=== PATIENT | male | born 1935 | race Caucasian/White ===

== ENCOUNTER 2019-02-21 13:13 | Outpatient (RCR) | payer MEDICARE, SELFPAY ==
[2019-02-21 13:44] LABS: INR 2.2; Prothrombin Time 22.9 Seconds (9.64-11.0)
== END 2019-05-22 23:59 | disposition home or self-care (01) ==
LOC: CHSLAB 13:13
PROVIDERS: Visit Provider Internal Medicine
DX: Z79.01 Long term (current) use of anticoagulants (principal)
CPT/HCPCS: 36415; 85610

== ENCOUNTER 2020-07-08 14:32 | Outpatient (CLI) | payer MEDICARE, SELFPAY ==
[2020-07-08 15:39] LABS: Influenza A QL RT-PCR Negative (Negative); Influenza B QL RT-PCR Negative (Negative); SARS-CoV-2 RNA PCR Negative (Negative)
== END 2020-07-08 14:33 | disposition home or self-care (01) ==
LOC: CHSLAB 14:35
PROVIDERS: PCP Internal Medicine; Visit Provider Internal Medicine
DX: R05 Cough (principal); J02.9 Acute pharyngitis, unspecified
CPT/HCPCS: 87081; 87502; 87880; C9803; U0003; U0005

== ENCOUNTER 2020-07-09 13:17 | Outpatient (CLI) | payer MEDICARE, SELFPAY ==
--- NOTE | ~2020-07-09 | XR_ITS ---
EXAMINATION: XR chest 2V DATE: 07/09/2020 13:57 INDICATION: Cough and wheezing. TECHNIQUE: Frontal and lateral views of the chest were obtained. COMPARISON: Chest single view 02/07/2017, chest CT 02/14/2017 FINDINGS: There is mild atelectasis versus scarring at the lung bases. No pleural effusion or pneumot horax. The heart size is normal. IMPRESSION: 1. Mild atelectasis versus scarring at the lung bases. Reviewed, dictated and finalized at location A.
[2020-07-09 13:35] LABS: Hematocrit 42.1 % (37.0-46.0); Mean Corpuscular HGB Conc 33.3 g/dL (32.0-36.0); Mean Corpuscular Hemoglobin 30.7 pg (27.0-31.0); Mean Corpuscular Volume 92.3 fL (78.0-102.0); Mean Platelet Volume 9.2 fl (8.7-11.0); Platelet Count Result 209 K/mm3 (150-420); Red Blood Count 4.56 M/mm3 (4.70-6.10); White Blood Count 8.1 K/mm3 (4.8-10.8)
[2020-07-09 13:48] LABS: INR 2.8; Prothrombin Time 28.6 Seconds (9.50-12.10)
[2020-07-09 13:50] LABS: Alanine Aminotransferase 18 U/L (16-63); Albumin Level 3.3 g/dL (3.4-5.0); Alkaline Phosphatase 100 U/L (46-116); Anion Gap 9 mmol/L (8-16); Aspartate Amino Transferase 14 U/L (15-37); Bilirubin,Total 0.8 mg/dL (0.00-1.00); Blood Urea Nitrogen 22 mg/dL (7-18); Calcium 8.6 mg/dL (8.5-10.1); Carbon Dioxide 29 mmol/L (21-32); Chloride 102 mmol/L (98-108); Estimated Glomerular Filt Rate 59; Glucose 86 mg/dL (70-99); Osmolality Calculated 292 mOsm/kg (285-295); Sodium 140 mmol/L (136-145); Total Protein 6.9 g/dL (6.4-8.2)
[2020-07-09 14:14] LABS: Band Neutrophils Percent 0 % (0-6); Neutrophils Absolute Manual 3.96 K/mm3 (1.3-6.7); Neutrophils Percent Manual 49 % (46-73); Total Cells Counted 100
[2020-07-09 14:15] LABS: Basophils Absolute Manual 0.16 K/mm3 (0-0.1); Basophils Percent Manual 2 % (0-1); Eosinophils Absolute Manual 0.48 K/mm3 (0.02-0.5); Eosinophils Percent Manual 6 % (1-6); Lymphocytes Absolute Manual 2.18 K/mm3 (1.1-4.5); Lymphocytes Percent Manual 27 % (18-44); Monocytes Absolute Manual 1.29 K/mm3 (0.1-0.90); Monocytes Percent Manual 16 % (3-9); Platelet Estimate Adequate (Adequate)
== END 2020-07-09 13:18 | disposition home or self-care (01) ==
LOC: CHSLAB 13:20
PROVIDERS: PCP Internal Medicine; Visit Provider Internal Medicine
DX: R05 Cough (principal); R06.2 Wheezing; Z79.01 Long term (current) use of anticoagulants
CPT/HCPCS: 36415; 71046; 80053; 85025; 85610

== ENCOUNTER 2021-03-12 11:39 | Outpatient (CLI) | payer MEDICARE, SELFPAY ==
--- NOTE | 2021-03-12 12:50 | ECG_ITS ---
Measurements Intervals [place] Rate: 75 P: 68 LA: 205 QRS: 25 QRSD: 102 T: 34 QT: 374 QTc: 418 Interpretive Statements SINUS RHYTHM BASELINE ARTIFACT- I, II, III, AVR, V1 NORMAL ECG Electronically Signed On 03-12-2021 15:52:57 STOCKROOM WORKER by Dony Junior D.O.
== END 2021-03-12 11:40 | disposition home or self-care (01) ==
LOC: CHSCARD 11:41
PROVIDERS: PCP Internal Medicine; Visit Provider Internal Medicine
DX: R06.00 Dyspnea, unspecified (principal); R06.2 Wheezing; R91.8 Other nonspecific abnormal finding of lung field; J84.10 Pulmonary fibrosis, unspecified
CPT/HCPCS: 93005; 94060; 94726; 94729

== ENCOUNTER 2021-03-16 12:18 | Outpatient (CLI) | payer MEDICARE, SELFPAY ==
--- NOTE | ~2021-03-16 | CT_ITS ---
EXAMINATION: CT diagnostic chest wo con DATE: 03/16/2021 12:56 INDICATION: Wheezing with exacerbation. Pulmonary fibrosis. TECHNIQUE: Computed tomography (CT) of the chest was performed without intravenous contrast. The dose -length product was 307.27 mGy-cm. Automated exposure control and iterative reconstruction technique were employed. COMPARISON: CT dated 07/25/2009 FINDINGS: There is mediastinal lymphadenopathy. For instance precarinal lymph node measures 12 mm maría elena rt axis. Heart size normal. No significant pleural or pericardial effusion. There is atherosclerosis of the aorta and coronary arteries. There are gallstones. Otherwise, the upper abdomen is unremarkabl e. There is interlobular septal thickening bilaterally with subpleural bands, mild right lower lobe t raction bronchiectasis and coarse peripheral interstitial changes in the lower lobes with a pattern c onsistent with usual interstitial pneumonitis. No endobronchial lesions. There is levoscoliosis. Ther e are a few scattered small pulmonary nodules measuring 4 mm or less. There is mild emphysema. IMPRESSION: 1. 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 2: Mediastinal lymphadenopathy likely reactive. 3: Small bilateral pulmonary nodules measuring 4 mm or less, likely benign. Follow-up low dose CT ch est in 12 months recommended. Reviewed, dictated and finalized at location A. N TECH IMPRESSION: 1. Chronic interstitial lung disease in a pattern consistent with usual interst itial pneumonitis. 2: Mediastinal lymphadenopathy likely reactive. 3: Small bilateral pulmonary nodules measuring 4 mm or less, likely benign. Fo llow-up low dose CT chest in 12 months recommended.
--- NOTE | 2021-03-16 13:10 | ECHO_ITS ---
Patient Info Name: Artur Guadalupe Age: 85 years : 1935 Gender: Male Ht: 71 in Wt: 185 lbs BSA: 2.06 m2 HR: 88 bpm BP: 130 / 79 mmHg Exam Date: 03/16/2021 1:59 PM Exam Location: [facility] Patient Status: Outpatient Admit Date: 03/16/2021 Staff Ordering Physician: Lizandro Christian MD Supervisor Bottle House Cleaners: Susan Chen Attending Provider: Lizandro Christian MD Referring Physician: Gino BARRAZA; Exam Type: CA echo doppler color flow Study Info Indications R06.00 - Dyspnea, unspecified Complete two-dimensional, color flow and Doppler transthoracic echocardiogram is performed. Summary 1. Complete two-dimensional, color flow and Doppler transthoracic echocardiogram is performed. 2. Left ventricular chamber dimension is normal. 3. Left ventricular systolic function is normal, estimated at 60-65%. 4. There is mildly increased left ventricular wall thickness. 5. The left ventricular diastolic function is grade I diastolic dysfunction. 6. E/e' 6 is not elevated. 7. There is mild aortic valve sclerosis. 8. There is mild aortic valve regurgitation. 9. Mild pulmonary hypertension, estimated pulmonary arterial systolic pressure is 42 mmHg. Left Ventricle E/e' 6 is not elevated. Left ventricular chamber dimension is normal. Left ventricular systolic function is normal, estimated at 60-65%. There is mildly increased left ventricular wall thickness. The left ventricular diastolic function is grade I diastolic dysfunction. Right Ventricle Right ventricular systolic function is normal and with normal TAPSE 2.2 cm. Right ventricular chamber dimension is normal. Left Atria Left atrial chamber dimension is normal. Right Atria Right atrial chamber dimension is normal. Aortic Valve The aortic valve is trileaflet. There is mild aortic valve sclerosis. There is no aortic valve stenosis. There is mild aortic valve regurgitation. Pulmonic Valve There is no pulmonic regurgitation. Mitral Valve There is no mitral valve stenosis. There is no mitral valve regurgitation. Tricuspid Valve There is no tricuspid valve regurgitation. Mild pulmonary hypertension, estimated pulmonary arterial systolic pressure is 42 mmHg. Pericardium/Pleural There is no pericardial effusion. Inferior Vena Cava Inferior vena cava is not well visualized. Aorta The aortic root size at the sinus of Valsalva is normal. Left Ventricular Outflow Tract Name Value Normal LVOT 2D LVOT Diameter 2.1 cm LVOT Doppler LVOT Peak Velocity 106 cm/s LVOT Peak Gradient 4 mmHg LVOT Mean Gradient 3 mmHg LVOT VTI 22 cm LVOT VTI/AV VTI Ratio 0.7 LVOT Stroke Volume 78 ml Mitral Valve Name Value Normal MV Doppler M
== END 2021-03-16 12:19 | disposition home or self-care (01) ==
LOC: CHSIMG 12:20
PROVIDERS: PCP Internal Medicine; Visit Provider Internal Medicine
DX: R06.00 Dyspnea, unspecified (principal); R06.2 Wheezing; R91.8 Other nonspecific abnormal finding of lung field; J84.10 Pulmonary fibrosis, unspecified
CPT/HCPCS: 71250; 93306

== ENCOUNTER 2021-08-03 14:59 | Outpatient (CLI) | payer MEDICARE, SELFPAY ==
--- NOTE | ~2021-08-03 | XR_ITS ---
EXAMINATION: XR chest 2V DATE: 08/03/2021 15:27 INDICATION: Shortness of breath, COVID 19 positive TECHNIQUE: Frontal and lateral views of the chest are obtained COMPARISON: 07/09/2020 FINDINGS: The lungs are free of acute opacities. There is no pleural effusion or pneumothorax. The ca rdiomediastinal silhouette is normal. There is severe thoracic spondylosis. IMPRESSION: 1. No acute cardiopulmonary abnormality. Reviewed, dictated and finalized at location A.
[2021-08-03 15:36] LABS: Hemoglobin 15.1 g/dL (12.4-15.3); Mean Corpuscular HGB Conc 32.8 g/dL (32.0-36.0); Mean Corpuscular Hemoglobin 30.8 pg (27.0-31.0); Mean Corpuscular Volume 93.7 fL (78.0-102.0); Mean Platelet Volume 9.4 fl (8.7-11.0); Platelet Count Result 178 K/mm3 (150-420); Red Blood Count 4.91 M/mm3 (4.70-6.10); Red Cell Distribution Width 13.7 % (11.6-14.4); White Blood Count 7.5 K/mm3 (4.8-10.8)
[2021-08-03 15:48] LABS: Anion Gap 11 mmol/L (8-16); Blood Urea Nitrogen 24 mg/dL (7-18); Calcium 8.6 mg/dL (8.5-10.1); Carbon Dioxide 25 mmol/L (21-32); Chloride 101 mmol/L (98-108); Estimated Glomerular Filt Rate 52; Glucose 97 mg/dL (70-99); Osmolality Calculated 288 mOsm/kg (285-295); Potassium 4.1 mmol/L (3.5-5.1); Sodium 137 mmol/L (136-145)
[2021-08-03 15:58] LABS: Band Neutrophils Percent 0 % (0-6); Lymphocytes Percent Manual 24 % (18-44); Monocytes Percent Manual 16 % (3-9); Neutrophils Percent Manual 60 % (46-73); Platelet Estimate Adequate (Adequate); Total Cells Counted 100
== END 2021-08-03 15:00 | disposition home or self-care (01) ==
LOC: CHSLAB 15:01
PROVIDERS: PCP Internal Medicine; Visit Provider Internal Medicine
DX: J06.9 Acute upper respiratory infection, unspecified (principal); U07.1 COVID-19
CPT/HCPCS: 36415; 71046; 80048; 85025

== ENCOUNTER 2022-08-17 15:22 | Outpatient (CLI) | payer MEDICARE, SELFPAY ==
--- NOTE | ~2022-08-17 | XR_ITS ---
XR chest 2V 08/17/2022 15:41 Indication: Chronic shortness of breath with cough Procedure: 2 view chest Comparison: Comparison to multiple prior studies sequentially, with oldest reviewed study dated 01/26. Findings: Heart size normal. No focal air space disease, pulmonary edema, pleural effusion or suspect ed pneumothorax. The lungs are hyperinflated which is consistent with, but not diagnostic of chronic obstructive pulmonary disease. Impression: 1: No acute cardiopulmonary disease. Reviewed, dictated and finalized at location L. Impression: 1: No acute cardiopulmonary disease.
== END 2022-08-17 15:23 | disposition home or self-care (01) ==
LOC: CHSIMG 15:27
PROVIDERS: PCP Internal Medicine; Visit Provider Internal Medicine
DX: J44.9 Chronic obstructive pulmonary disease, unspecified (principal); R10.11 Right upper quadrant pain
CPT/HCPCS: 71046

== ENCOUNTER 2022-08-20 07:59 | Outpatient (CLI) | payer MEDICARE, SELFPAY ==
--- NOTE | ~2022-08-20 | US_ITS ---
US right upper quadrant INDICATION: Right upper quadrant pain. History of gallstones. PROCEDURE: Realtime right upper abdominal ultrasound. COMPARISON: No prior studies for comparison. FINDINGS: The pancreas is normal without focal mass or pancreatic ductal dilation. Liver echotexture is normal without focal mass or intrahepatic biliary dilatation. There is normal directional flow i n the portal vein. There is gallbladder sludge. No definite gallstones are identified. Gallbladder is otherwise unremark able without significant wall thickening or pericholecystic fluid. Common bile duct measures 4 mm. No sonographic Millan's sign. IMPRESSION: 1: Gallbladder sludge. Reviewed, dictated and finalized at location B. IMPRESSION: 1: Gallbladder sludge.
== END 2022-08-20 08:00 | disposition home or self-care (01) ==
LOC: CHSIMG 08:00
PROVIDERS: PCP Internal Medicine; Visit Provider Internal Medicine
DX: J44.9 Chronic obstructive pulmonary disease, unspecified (principal); R10.11 Right upper quadrant pain; K83.9 Disease of biliary tract, unspecified
CPT/HCPCS: 76705

== ENCOUNTER 2022-08-30 07:38 | Outpatient (CLI) | payer MEDICARE, SELFPAY ==
--- NOTE | ~2022-08-30 | NM_ITS ---
EXAMINATION: NM hepatobiliary w pharm DATE: 08/30/2022 10:20 INDICATION: Right upper quadrant abdominal pain. COMPARISON: Ultrasound 08/20/2022 TECHNIQUE: 5.9 mCi Tc-99m mebrofenin (Choletec) was administered intravenously. Scintigraphic images of the abdomen were obtained for one hour. Then, 1.7 mcg sincalide (Kinevac) IV was administered, an d imaging was continued for 30 minutes. FINDINGS: There is normal clearance of radiotracer from the blood pool. There is homogeneous tracer u ptake by the liver. Activity progresses to the bowel and gallbladder. Gallbladder ejection fraction (GBEF) was 20%. Note that most patients with gallbladder dysfunction have GBEF < 35%, which overlaps with the broad normal range of 10-90%. IMPRESSION: 1. Gallbladder ejection fraction in the lower range of normal. Note that this value overlaps with th e range of values that may be seen with gallbladder dysfunction and/or chronic cholecystitis if there is appropriate clinical correlation. Reviewed, dictated and finalized at location A. IMPRESSION: 1. Gallbladder ejection fraction in the lower range of normal. Note that this value overlaps with the range of values that may be seen with gallbladder dysfu nction and/or chronic cholecystitis if there is appropriate clinical correlatio nBlair
== END 2022-08-30 07:39 | disposition home or self-care (01) ==
LOC: CHSIMG 07:39
PROVIDERS: PCP Internal Medicine; Visit Provider Internal Medicine
DX: R10.11 Right upper quadrant pain (principal)
CPT/HCPCS: 78227; A9537; J2805

== ENCOUNTER 2023-02-24 09:01 | Outpatient (CLI) | payer MEDICARE, SELFPAY ==
--- NOTE | ~2023-02-24 | CT_ITS ---
CT Scan of the Chest without Contrast: Clinical Indication: Pulmonary nodule Technique: Contiguous sections were acquired throughout the chest without intravenous contrast. Dose reduction technique was used on this scan by utilizing automated exposure control and iterative recon struction technique. The dose-length product (DLP) was 265.84 mGy-cm. COMPARISON: 03/16/2021 Findings: There is no evidence of any significant mediastinal, hilar or axillary lymphadenopathy. There are ath erosclerotic calcifications of the aorta and coronary arteries. There is no evidence of pleural or pericardial effusion. Diffuse subpleural reticulation and mild peripheral interstitial thickening, with basilar predominanc e, is similar to prior exam. No suspicious pulmonary nodule seen. Images through the upper abdomen reveal small gallstones. Impression: Mild chronic interstitial pulmonary disease, stable from prior exam. No suspicious pulmonary nodule. Reviewed, dictated and finalized at [facility]. WHAT INSPECTOR AND PACKER Impression: Mild chronic interstitial pulmonary disease, stable from prior exam. No suspicious pulmonary nodule.
== END 2023-02-24 09:02 | disposition home or self-care (01) ==
LOC: CHSIMG 09:04
PROVIDERS: PCP Internal Medicine; Visit Provider Internal Medicine
DX: R91.1 Solitary pulmonary nodule (principal); J84.9 Interstitial pulmonary disease, unspecified
CPT/HCPCS: 71250

== ENCOUNTER 2023-03-10 00:34 | Day surgery (SDC) | payer MEDICARE, SELFPAY ==
[2023-03-02 11:20] VITALS: BMI 24.4
--- NOTE | 2023-03-08 10:47 | SUR.PREOP ---
Patient called regarding upcoming procedure. Message left on patient's voicemail regarding appointment times..
[2023-03-10 08:14] VITALS: BP 155/71; PULSE 63; RESP 18; TEMP 35.8; O2SAT 95
[2023-03-10] MEDS: LACTATED RINGERS 1,000 ML 150 ML IV CONT ×2 (08:43→10:02)
[2023-03-10 09:03] LABS: INR 1.1; Prothrombin Time 14.8 Seconds (11.1-14.7)
[2023-03-10 09:05] LABS: Partial Thromboplastin Time 28.8 SECONDS (22.3-36.8)
--- NOTE | 2023-03-10 09:37 | WPDANESEPPF ---
Anes - Initial Pre Proc Eval Procedure: Operation Date: 03/10/23 09:30 Proposed Procedures p Esophagogastroduodenoscopy - Morgan Logan DO Date/Time: 03/10/23 09:37 Surgeon: Morgan Logan DO Pre Op Diagnosis: Hematemesis Patient Data Age: 87 Gender: M Height: 1.83 m Weight: 80 kg Last Vital Signs Temp 96.5 F L 03/10/23 08:14 Pulse 63 03/10/23 08:14 Resp 18 03/10/23 08:14 BP 155/71 H 03/10/23 08:14 Pulse Ox 95 03/10/23 08:14 O2 Del Method Room Air 03/10/23 08:14 Allergies Allergy/AdvReac Type Severity Reaction Status Date / Time No Known Allergies Allergy Verified 03/10/23 08:12 Home Medications Medication Instructions Recorded Confirmed Type albuterol sulfate 90 mcg/actuation 1 inh inhalation Q4-6H PRN 02/02/23 03/10/23 History breath activated powder inhaler Shortness Of Breath atenolol 25 mg tablet 25 mg PO DAILY 02/02/23 03/10/23 History atorvastatin 20 mg tablet 20 mg PO DAILY 02/02/23 03/10/23 History losartan 100 0.5 tablet PO DAILY 02/02/23 03/10/23 History mg-hydrochlorothiazide 12.5 mg tablet omeprazole 20 mg capsule,delayed 20 mg PO DAILY reflux 02/02/23 03/10/23 History release warfarin 1 mg tablet 0.5 mg PO DAILY 02/02/23 03/10/23 History ursodiol 300 mg capsule 300 mg PO BID #180 caps 02/03/23 03/10/23 Rx tiotropium bromide 18 mcg capsule 1 cap inhalation PRN PRN Shortness 03/02/23 03/10/23 History with inhalation device (Spiriva Of Breath with HandiHaler) warfarin 3 mg tablet 3 mg PO DAILY 03/02/23 03/10/23 History Laboratory Tests 03/10/23 08:39 PT 14.8 H Seconds (11.1-14.7) INR 1.1 APTT 28.8 SECONDS (22.3-36.8) Patient hx anesthesia problems: none Family hx anesthesia problems: none Results Review: All pre-operative results and documents have been reviewed as part of the pre-operative evaluation. [facility] Past Medical History Medical History (Updated 02/22/23 @ 10:03 by Pdero Wilkes MD) COPD (chronic obstructive pulmonary disease) GERD (gastroesophageal reflux disease) High cholesterol History of blood clots History of skin cancer Hypertension SATISH (obstructive sleep apnea) Surgical History Surgical History History of appendectomy History of bilateral knee replacement Family History Family History Other Diabetes mellitus Ovarian cancer Social History Social History Smoking status: Former smoker Tobacco type: cigarettes Alcohol intake: current Substance use: never Substance use type: does not use Living arrangements: with family Occupation/Education: retired Spiritual care concerns: No Anes - Eval Final PreProcedure Day of Procedure 03/10/23 09:37 Patient weight: normal Heart: regular rate and rhythm Lungs: clear to auscultation Airway: Mallampati scale Neurological: alert and oriented Last oral intake: >/= 8 hours ASA classification: III Emergent: no Anesthetic plan: proceed Anesthesia type and monitoring: general GIVS and standard monitoring Results Review: All pre-operative results and documents have been reviewed as part of the pre-operative evaluation. Informed Consent: The patient's anesthetic plan and its attendant risks and benefits were discussed with the patient/family/POA. Questions were solicited and answers provided to the satisfaction of the patient/family/POA.
--- NOTE | 2023-03-10 09:57 | PM.IMHP ---
H&P: HPI History of Present Illness Date/Time: 03/10/23 09:57 Chief Complaint: Hematemesis Narrative: This is an 87-year-old man who presents for EGD. He had an episode of hematemesis once. He has also been seen by his PCP for upper abdominal pain. He does get some frequent heartburn as well. He is on long-term anticoagulation for history of blood clots. He does take omeprazole 20 mg daily. Review of Systems Review of Systems: All systems reviewed & are unremarkable except as noted in HPI and below Constitutional: Constitutional: Denies chills, Denies fever(s), Denies headache(s) and Denies weight loss Eyes: Eyes: Denies change in vision ENT: Denies dizziness, Denies headache(s), Denies neck mass and Denies throat swelling Cardiovascular: Cardiovascular: Denies chest pain, Denies lightheadedness and Denies dyspnea Respiratory: Respiratory: Denies cough, Denies dyspnea and Denies wheezing Gastrointestinal: Gastrointestinal: Reports abdominal pain (Upper), Denies change in bowel habits, Denies nausea and Denies vomiting Genitourinary: Genitourinary: Denies hematuria and Denies dysuria Musculoskeletal: Musculoskeletal: Reports as per HPI Integumentary/Breasts: Skin/Breast: Reports as per HPI Neurologic: Denies dizziness and Denies headache(s) Allergic/Immunologic: Allergic/Immunologic: Denies throat swelling and Denies wheezing [facility] Past Medical History Medical History (Updated 03/10/23 @ 09:58 by Morgan Logan DO) COPD (chronic obstructive pulmonary disease) GERD (gastroesophageal reflux disease) High cholesterol History of blood clots History of skin cancer Hypertension SATISH (obstructive sleep apnea) Surgical History Surgical History History of appendectomy History of bilateral knee replacement Family History Family History Other Diabetes mellitus Ovarian cancer Social History Social History Smoking status: Former smoker Tobacco type: cigarettes Alcohol intake: current Substance use: never Substance use type: does not use Living arrangements: with family Occupation/Education: retired Spiritual care concerns: No Meds Home Medications and Allergies Home Medications Medication Instructions Recorded Confirmed Type albuterol sulfate 90 mcg/actuation 1 inh inhalation Q4-6H PRN 02/02/23 03/10/23 History breath activated powder inhaler Shortness Of Breath atenolol 25 mg tablet 25 mg PO DAILY 02/02/23 03/10/23 History atorvastatin 20 mg tablet 20 mg PO DAILY 02/02/23 03/10/23 History losartan 100 0.5 tablet PO DAILY 02/02/23 03/10/23 History mg-hydrochlorothiazide 12.5 mg tablet omeprazole 20 mg capsule,delayed 20 mg PO DAILY reflux 02/02/23 03/10/23 History release warfarin 1 mg tablet 0.5 mg PO DAILY 02/02/23 03/10/23 History ursodiol 300 mg capsule 300 mg PO BID #180 caps 02/03/23 03/10/23 Rx tiotropium bromide 18 mcg capsule 1 cap inhalation PRN PRN Shortness 03/02/23 03/10/23 History with inhalation device (Spiriva Of Breath with HandiHaler) warfarin 3 mg tablet 3 mg PO DAILY 03/02/23 03/10/23 History Allergies Allergy/AdvReac Type Severity Reaction Status Date / Time No Known Allergies Allergy Verified 03/10/23 08:12 Vital Signs Vital Signs - 24 hr 03/10/23 08:14 Temperature 35.8 C L Pulse Rate 63 Respiratory Rate 18 Blood Pressure 155/71 H Pulse Oximetry 95 Oxygen Delivery Room Air Exam Const: General: no acute distress and alert Orientation/consciousness: patient oriented x3 HENMT: Head: normocephalic and atraumatic Ears: hearing grossly normal bilaterally Face/Nose/Sinus: Normal nares present Mouth: Yes Normal oral and palatal mucosa present Eyes: Periorbital: periorbital findings normal Sclera: sclerae normal EOM: EOMs intact bilateral
[2023-03-10 10:22] VITALS: BP 107/45; PULSE 58; RESP 23; O2SAT 97
[2023-03-10 10:32] VITALS: BP 104/52; PULSE 63; RESP 25; O2SAT 97
[2023-03-10 10:42] VITALS: BP 126/62; PULSE 58; RESP 25; O2SAT 98
== END 2023-03-10 10:49 | disposition home or self-care (01) ==
PROVIDERS: PCP Internal Medicine; Visit Provider Surgery
PROC: 0DJ08ZZ Inspection of Upper Intestinal Tract, Via Natural or Artificial Opening Endoscopic (ICD-10-PCS; CPT 43235; principal; 2023-03-10 09:30)
DX: K44.9 Diaphragmatic hernia without obstruction or gangrene (principal); J44.9 Chronic obstructive pulmonary disease, unspecified; K21.9 Gastro-esophageal reflux disease without esophagitis; E78.00 Pure hypercholesterolemia, unspecified; I10 Essential (primary) hypertension; G47.33 Obstructive sleep apnea (adult) (pediatric); Z86.718 Personal history of other venous thrombosis and embolism; Z87.891 Personal history of nicotine dependence; F10.90 Alcohol use, unspecified, uncomplicated; Z79.51 Long term (current) use of inhaled steroids; Z79.01 Long term (current) use of anticoagulants; Z79.899 Other long term (current) drug therapy
CPT/HCPCS: 43235; 36415; 85610; 85730; J2704; J7120

== ENCOUNTER 2023-03-24 07:54 | Outpatient (CLI) | payer MEDICARE, SELFPAY ==
--- NOTE | ~2023-03-24 | US_ITS ---
EXAMINATION: US aorta DATE: 03/24/2023 08:17 INDICATION: Abdominal aortic aneurysm screening TECHNIQUE: Grayscale, color Doppler, and pulsed Doppler images of the aorta and common iliac arteries were obtained. COMPARISON: None. FINDINGS: The proximal aorta measures 2.4 cm. The mid aorta measures 3.3 cm. The distal aorta measures 3.1 cm. The right common iliac artery measures 2.0 cm. The left common iliac artery measures 2.0 cm. IMPRESSION: 1. 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 Reviewed, dictated and finalized at location A. RIOR DESIGN TEACHER IMPRESSION: 1. 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
== END 2023-03-24 07:55 | disposition home or self-care (01) ==
LOC: CHSIMG 07:55
PROVIDERS: PCP Internal Medicine; Visit Provider Internal Medicine
DX: I71.40 Abdominal aortic aneurysm, without rupture, unspecified (principal)
CPT/HCPCS: 76775

== ENCOUNTER 2023-07-22 07:59 | Outpatient (RCR) | payer MEDICARE, SELFPAY ==
--- NOTE | 2023-07-22 07:50 | OPREHPOC ---
Outpatient Therapy Plan of Care This is a Multidisciplinary Plan of Care that may contain components documented by all disciplines (PT, OT, and ST.) PT Problem 1 PT Problem #1 Knowledge Deficit PT Goal 1 Goal patient to demonstrate independence with HEP Target Visit 3 PT Problem 2 PT Problem #2 Impaired Strength PT Goal 1 Goal Patient to demonstrate 5/5 strength of B LE in order to return squatting for yard work Target Visit 6 PT Problem 3 PT Problem #3 Impaired Functional Mobil PT Goal 1 Goal 1. Patient to score 24 on Tinetti Balance scale to decrease fall risk to low 2. Patient to demonstrate 60 deg of B cervical rotation to improve ability to look over his shoulder when driving 3. Patient to ambulate 1200' on Tinetti balance scale with reported JACK dyspnea scale of 3/10 Target Visit 6
--- NOTE | 2023-07-22 07:53 | PTOPEVAL1 ---
Assessment and note entered by Yvonne Francis DPT Evaluation Information Assessment Status Evaluation Diagnosis unsteady gait, impaired balance, neck pain Onset 07/20/23 Subjective Information Patient reports he has noticed some impaired balance. he denies falls. he reports he does not use an AD. he reports neuropathy in both feet. he also reports neck pain at times but denies pain at IE. he reports he is still doing his own yard work and house work. he reports he still drives. he reports when he does have neck pain it is worse with turning to look over his shoulder and when sitting. he reports his pain is more on the left side. he reports he is not active enough at home. He reports he has COPD and gets short of breath Reported Pain Level Pain Score 0: Self Report Assessment PT Clinical Summary Mr. Guadalupe is a 88 year old male who presents to PT with impaired balance and neck pain. Patient denies neck pain at IE and will be address as needed. Patient demonstrates decreased LE strength , impaired Tinetti score indicating moderate fall risk and 5/10 dyspnea score on JACK during 6 min walk test limiting his ability to perform yard work and house hold tasks. He would benefit from skilled PT to address impairments and return to PLOF. Plan of Care Interventions Electrical Stimulation,Gait Training,Hot Pack/Cold Pack,Manual Therapy,Neuro Re-education,Patient/ Caregiver Educati,Therapeutic Activities, Therapeutic Exercise PT Services Indicated Yes Treatment Frequency and 2x weekly for 6 visits Duration These treatments will address the objective and functional deficits as defined above. The patient will be advanced safely and appropriately in order for the patient to progress towards his/her prior level of function. Additional exercises will be introduced and as well as a comprehensive home exercise program upon discharge, if needed, ?to ensure carryover of functional gains achieved in the clinic. This treatment plan has been reviewed and agreement upon by the patient.
--- NOTE | 2023-08-02 09:30 | OPREHPOC ---
Outpatient Therapy Plan of Care This is a Multidisciplinary Plan of Care that may contain components documented by all disciplines (PT, OT, and ST.) PT Problem 1 PT Problem #1 Knowledge Deficit PT Goal 1 Goal patient to demonstrate independence with HEP Target Visit 3 Progress Met PT Problem 2 PT Problem #2 Impaired Strength PT Goal 1 Goal Patient to demonstrate 5/5 strength of B LE in order to return squatting for yard work Target Visit 6 Progress Not Met PT Problem 3 PT Problem #3 Impaired Functional Mobil PT Goal 1 Goal 1. Patient to score 24 on Tinetti Balance scale to decrease fall risk to low, met 2. Patient to demonstrate 60 deg of B cervical rotation to improve ability to look over his shoulder when driving, met 3. Patient to ambulate 1200' on Tinetti balance scale with reported JACK dyspnea scale of 3/10, not met Target Visit 6 Progress Partially Met
--- NOTE | 2023-08-02 09:30 | PTOPDC ---
Assessment and note entered by Yvonne Francis DPT Evaluation Information Assessment Status Discharge - Pt Not Presen Diagnosis unsteady gait, impaired balance, neck pain Onset 07/20/23 Subjective Information patient reports he would like to make today his last day of PT. he reports he has been doing his HEP and will continue to do at home. he reports he has not had much neck pain. Reported Pain Level Pain Score 0: Self Report Pain Score 0: Self Report Assessment PT Clinical Summary Mr. Guadalupe attended 3 visits of skilled PT and has requested to be self discharged. He reports he will continue to perform his HEP independently. Patient demonstrates low fall risk indicated by Tinetti balance score and has decreased shortness of breath following 6 min walk test. Patient will be discharged at this time. Plan of Care PT Services Indicated No
== END 2023-08-02 20:00 | disposition home or self-care (01) ==
LOC: CHSPT 07:59
PROVIDERS: Visit Provider Internal Medicine
DX: M54.2 Cervicalgia (principal); R26.81 Unsteadiness on feet
CPT/HCPCS: 97110; 97112; 97161

== ENCOUNTER 2023-10-06 09:21 | Outpatient (CLI) | payer MEDICARE, SELFPAY ==
--- NOTE | ~2023-10-06 | XR_ITS ---
Clinical Indication: Cough, COPD PA and lateral views of the chest: Comparison: 08/17/2022 Findings: The lungs are clear, without evidence of focal consolidation or pleural effusion. Probable COPD. Cardiomediastinal silhouette is within normal limits. Bones and soft tissues are unremarkable. Impression: No acute abnormality evident. COPD. Reviewed, dictated and finalized at location . Impression: No acute abnormality evident. COPD.
[2023-10-06 09:48] LABS: Hemoglobin 14.7 g/dL (12.4-15.3); Mean Corpuscular HGB Conc 33.4 g/dL (32-36); Mean Corpuscular Hemoglobin 30.7 pg (27.0-31.0); Mean Corpuscular Volume 91.9 fL (78.0-102.0); Mean Platelet Volume 9.1 fl (8.7-11.0); Platelet Count Result 200 K/mm3 (150-420); Red Blood Count 4.79 M/mm3 (4.70-6.10); Red Cell Distribution Width 13.2 % (11.6-14.4); White Blood Count 9.4 K/mm3 (4.8-10.8)
[2023-10-06 10:30] LABS: Anion Gap 10 mmol/L (4-12); Blood Urea Nitrogen 18 mg/dL (7-18); Calcium 8.9 mg/dL (8.5-10.1); Carbon Dioxide 28 mmol/L (21-32); Chloride 100 mmol/L (98-108); Estimated Glomerular Filt Rate > 60; Glucose 110 mg/dL (70-99); Osmolality Calculated 288 mOsm/kg (285-295); Potassium 4.3 mmol/L (3.5-5.1); Sodium 138 mmol/L (136-145)
== END 2023-10-06 09:22 | disposition home or self-care (01) ==
LOC: CHSLAB 09:24
PROVIDERS: PCP Internal Medicine; Visit Provider Nurse Practitioner Family
DX: R05.1 Acute cough (principal); J44.1 Chronic obstructive pulmonary disease with (acute) exacerbation; J02.0 Streptococcal pharyngitis
CPT/HCPCS: 36415; 71046; 80048; 85027

== ENCOUNTER 2023-12-02 08:34 | Outpatient (CLI) | payer MEDICARE, SELFPAY | END 2023-12-02 08:35 | disposition home or self-care (01) | LOC: CHSCARD 08:36 | PROVIDERS: PCP Internal Medicine; Visit Provider Internal Medicine | DX: J44.9 Chronic obstructive pulmonary disease, unspecified (principal); R06.00 Dyspnea, unspecified | CPT/HCPCS: 94060; 94726; 94729; 95012 ==

== ENCOUNTER 2024-02-13 10:00 | Outpatient (CLI) | payer MEDICARE, SELFPAY ==
--- NOTE | ~2024-02-13 | CT_ITS ---
EXAMINATION: CT sinus wo con DATE: 02/13/2024 10:15 INDICATION: Chronic sinusitis. TECHNIQUE: Computed tomography (CT) of the paranasal sinuses was performed without intravenous contra st. Iterative reconstruction technique was employed. The dose-length product was 281.60 mGy-cm. COMPARISON: None FINDINGS: The frontal sinuses are clear. There is mild mucosal thickening in the bilateral ethmoid si nuses and maxillary sinuses. The right maxillary sinus is small. The sphenoid sinuses are clear. The nasal septum is at the midline. There is alissa bullosa involving the bilateral middle turbinates. Th e ostiomeatal units are patent. IMPRESSION: 1. Mild mucosal thickening in the paranasal sinuses. Reviewed, dictated and finalized at location A. REL EMBROIDERY DIGITIZER
== END 2024-02-13 10:01 | disposition home or self-care (01) ==
LOC: CHSIMG 10:02
PROVIDERS: PCP Internal Medicine; Visit Provider Internal Medicine
DX: J32.9 Chronic sinusitis, unspecified (principal)
CPT/HCPCS: 70486

== ENCOUNTER 2024-02-29 11:40 | Outpatient (CLI) | payer MEDICARE, SELFPAY ==
--- NOTE | ~2024-02-29 | XR_ITS ---
Clinical Indication: Chest pain, possible PA and lateral views of the chest: Comparison: 10/06/2023 Findings: Hazy medial biapical airspace opacities are present, unchanged. No acute pulmonary abnormal ity. Possible COPD.. Cardiomediastinal silhouette is within normal limits. Bones and soft tissues ar e unremarkable. Impression: Stable biapical opacities medially, possibly confluence of shadows. No acute abnormalities. COPD. Reviewed, dictated and finalized at location M. P SOCIAL WORKER Impression: Stable biapical opacities medially, possibly confluence of shadows. No acute abnormalities. COPD.
--- NOTE | ~2024-02-29 | XR_ITS ---
Right Shoulder Technique: AP and scapular Y views were obtained. Clinical History: Pain Findings: No fracture or dislocation is seen. Humeral head there is high riding. The glenohumeral mikie nt demonstrates moderate degenerative change. There is mild AC joint degenerative change. Soft tissue s are unremarkable. Impression: Degenerative changes, as above. High riding humeral head. Correlate for underlying rotator cuff tear. Reviewed, dictated and finalized at location M. DRIER Impression: Degenerative changes, as above. High riding humeral head. Correlate for underlying rotator cuff tear.
== END 2024-02-29 11:41 | disposition home or self-care (01) ==
LOC: CHSIMG 11:41
PROVIDERS: PCP Internal Medicine; Visit Provider Internal Medicine
DX: M25.511 Pain in right shoulder (principal); R07.81 Pleurodynia; R91.8 Other nonspecific abnormal finding of lung field; J44.9 Chronic obstructive pulmonary disease, unspecified
CPT/HCPCS: 71046; 73030

== ENCOUNTER 2024-03-14 09:34 | Outpatient (CLI) | payer MEDICARE, SELFPAY | END 2024-03-14 09:35 | disposition home or self-care (01) | LOC: ANHBWCAUD 09:34 | PROVIDERS: PCP Internal Medicine; Visit Provider Nurse Practitioner Family | DX: H90.3 Sensorineural hearing loss, bilateral (principal); H93.13 Tinnitus, bilateral; H69.93 Unspecified Eustachian tube disorder, bilateral | CPT/HCPCS: 92557; 92567 ==

== ENCOUNTER 2024-04-24 10:24 | Outpatient (CLI) | payer MEDICARE, SELFPAY ==
--- NOTE | ~2024-04-24 | XR_ITS ---
Clinical Indication: COPD PA and lateral views of the chest: Comparison: 02/29/2024 Findings: The lungs are clear, without evidence of focal consolidation or pleural effusion. Stable CO PD pattern with probable mild chronic interstitial disease at the lung bases. Cardiomediastinal silho uette is within normal limits. Bones and soft tissues are unremarkable. Impression: COPD pattern with probable mild chronic interstitial disease at the lung bases. Reviewed, dictated and finalized at location M. STANT ASSOCIATE FULL PROFESSOR Impression: COPD pattern with probable mild chronic interstitial disease at the lung bases.
[2024-04-24 10:54] LABS: Hematocrit 43.8 % (37.0-46.0); Hemoglobin 14.3 g/dL (12.4-15.3); Mean Corpuscular HGB Conc 32.6 g/dL (32-36); Mean Corpuscular Volume 91.8 fL (78.0-102.0); Mean Platelet Volume 9.5 fl (8.7-11.0); Platelet Count Result 160 K/mm3 (150-420); Red Blood Count 4.77 M/mm3 (4.70-6.10); Red Cell Distribution Width 13.7 % (11.6-14.4); White Blood Count 8.6 K/mm3 (4.8-10.8)
[2024-04-24 11:20] LABS: Alanine Aminotransferase 17 U/L (16-63); Albumin Level 3.3 g/dL (3.4-5.0); Alkaline Phosphatase 101 U/L (46-116); Anion Gap 12 mmol/L (4-12); Aspartate Amino Transferase 18 U/L (15-37); Bilirubin,Total 0.8 mg/dL (0.00-1.00); Blood Urea Nitrogen 15 mg/dL (7-18); Calcium 8.5 mg/dL (8.5-10.1); Carbon Dioxide 26 mmol/L (21-32); Chloride 99 mmol/L (98-108); Estimated Glomerular Filt Rate 60; Glucose 133 mg/dL (70-99); NT Pro B Type Natriuretic Pept 403 pg/mL (0-450); Osmolality Calculated 286 mOsm/kg (285-295); Potassium 4.3 mmol/L (3.5-5.1); Sodium 137 mmol/L (136-145); Total Protein 6.9 g/dL (6.4-8.2)
[2024-04-24 11:21] LABS: Strep Group A RT-PCR NOT DETECTED (Negative)
--- OUTSIDE RECORDS SUMMARY | 2024-04-24 11:28 | XMS_ITS | Clinical Summary ---
Author Organization [facility] Address [address] [place] [address]. [place], [place] [address] [place] [address] Care Team Providers Care Enterprise Services Manager Name Role Phone Lizandro Christian MD Primary Care Provider [phone] Medications montelukast (SINGULAIR) 10 MG tabletIndications :Moderate persistent asthma without complication ([facility]) TAKE 1 TABLET BY MOUTH NIGHTLY AT BEDTIME 30 tablet 2 Active Active Problems Problem Noted Date Diagnosed Date Bronchiectasis without complication ([facility]/HCC HHS /HCC) 08/26/2021 Chronic pulmonary aspiration 08/26/2021 Excessive daytime sleepiness 08/26/2021 Moderate persistent asthma without complication ([facility]) 08/25/2021 Social History Tobacco Use Types Packs/Day Years Used Date Smoking Tobacco: Never Assessed Sex and Gender Information Value Date Recorded Sex Assigned at Not on file Legal Sex Male 9:05 PM CDT Gender Identity Not on file Sexual Orientation Not on file Last Filed Vital Signs Vital Sign Reading Time Taken Comments Blood Pressure 137/84 08/20/2021 10:43 AM CDT Pulse 64 08/20/2021 10:43 AM CDT Temperature - - Respiratory Rate 20 08/20/2021 10:43 AM CDT Oxygen Saturation 97% 08/20/2021 10:43 AM CDT Inhaled Oxygen Concentration - - Weight 83.7 kg (184 lb 9.6 oz) 08/20/2021 10:43 AM CDT Height 182.9 cm (6') 08/20/2021 10:43 AM CDT Body Mass Index 25.04 08/20/2021 10:43 AM CDT Plan of Treatment Health Maintenance Due Date Last Done Comments Pneumococcal Vaccine: 65+ Ye ars (1 of 2 - PCV) 1941 DTaP, Tdap and Td Vaccines ( 1 - Tdap) 1954 Zoster Vaccines (1 of 2) 1985 Annual Medicare Wellness Visit 2000 RSV Immunization or 60+ Years (1 - 1-dose 75+ series) 2010 COVID-19 Vaccine (1 - 2023-2 5 season) 2023 Influenza Adult (#1) 2023 Meningococcal B Vaccine Aged Out No l onger eligible based on patient's age to complete this topic Meningococcal Vaccine Aged Out No dima cristian eligible based on patient's age to complete this topic RSV Immunizations Under 20 Months Aged Out No longer eligible based on patient's age to complete this topic Insurance MED [facility] MEDICARE Care Teams Enterprise Services Manager Relationship Specialty Start Date End Date Lizandro Christian MD [address] [place] [id number] PCP - General INTERNAL MEDICINE 04/01/21
[2024-04-24 11:30] LABS: SARS-CoV-2 RNA PCR Negative (Negative)
[2024-04-24 11:36] LABS: Influenza A QL RT-PCR Positive (Negative); Influenza B QL RT-PCR Negative (Negative); RSV RNA, RT-PCR Negative (Negative)
== END 2024-04-24 10:25 | disposition home or self-care (01) ==
PROVIDERS: PCP Internal Medicine; Visit Provider Internal Medicine
DX: J44.1 Chronic obstructive pulmonary disease with (acute) exacerbation (principal)
CPT/HCPCS: 36415; 71046; 80053; 83880; 85027; 87637; 87651

== ENCOUNTER 2024-05-07 07:09 | Emergency (ER) | payer MEDICARE, SELFPAY ==
--- NOTE | ~2024-05-07 | XR_ITS ---
Portable chest x-ray Comparison: 04/24/2024 Clinical History: Cough Findings: There is no acute pulmonary consolidation or pleural effusion. COPD pattern present. Card iomediastinal silhouette is stable. Bones and soft tissues are unremarkable. Impression: COPD. No definite acute abnormality seen. Reviewed, dictated and finalized at [facility]. ERVATION PLANNER Impression: COPD. No definite acute abnormality seen.
--- OUTSIDE RECORDS SUMMARY | 2024-05-07 07:11 | XMS_ITS | Clinical Summary ---
Author Organization [facility] Address [facility] [place] [address] Care Team Providers Care Physical Education Teacher Name Role Phone Lizandro Christian MD Primary Care Provider Medications montelukast (SINGULAIR) 10 MG tabletIndications :Moderate persistent asthma without complication (HHS/HCC) TAKE 1 TABLET BY MOUTH NIGHTLY AT BEDTIME 30 tablet 2 Active Active Problems Problem Noted Date Diagnosed Date Bronchiectasis without complication (CMS/HCC HHS /HCC) 08/26/2021 Chronic pulmonary aspiration 08/26/2021 Excessive daytime sleepiness 08/26/2021 Moderate persistent asthma without complication (HHS/HCC) 08/25/2021 Social History Tobacco Use Types Packs/Day [...] - 1-dose 75+ series) 2010 COVID-19 Vaccine ( - 2023-2 5 season) 2023 Influenza Adult (#1) 2023 Meningococcal B Vaccine Aged Out No l onger eligible based on patient's age to complete this topic Meningococcal Vaccine Aged Out No dima cristian eligible based on patient's age to complete this topic RSV Immunizations Under 20 Months Aged Out No longer eligible based on patient's age to complete this topic Insurance MED [facility] MEDICARE Care Teams Physical Education Teacher Relationship Specialty Start Date End Date Lizandro Christian MD [address] [place] [address] PCP - General INTERNAL MEDICINE 04/01/21
--- OUTSIDE RECORDS SUMMARY | 2024-05-07 07:11 | XMS_ITS | Data Portability ---
Author Organization [place] [facility] [employer], Main Office Address [address] [place] [address] Care Team Providers Care Die Designer Apprentice Name Role Phone LURDES ALDRICH Primary Care Provider Assessment No assessment recorded. Plan of Treatment Reminders Order Date Submit Date Provider Last Modified By Organization Details Last Modified Time Details Appointments Procedure 15 2024 09:45A Rubina Leon MD Not available Not available Not available Post-Op 15 2024 11:00A Rubina Leon MD Not available Not available Not available Lab None recorded. Referral None recorded. Procedures None recorded. Surgeries endoscopy , nasal/sin us, w/ maxillary antrostom y & tissue removal (SURG) 2024 025 Not available 05/04/2024 09:02:17 endoscopy , nasal/sin us, w/ total ethmoidec rosemarie (SURG) 2024 025 Not available 05/04/2024 09:02:17 Imaging None recorded. Medication Orders cefdinir 300 mg capsule [address] [facility] [place], [address], 05/03/2024 08:53:13 prednison e 20 mg tablet [address] [facility] [place], [address], 05/03/2024 08:53:[address] 10 mg tablet 2023 024 [facility] [place], [address], 02/15/2024 15:02:38 Medrol (Kaleb) 4 mg tablets in a dose pack [address]/[id number], [address] [place], [address], 05/03/2024 08:55:17 cefdinir 300 mg capsule [address]/[facility] #[id number], [address] [place], [address], 05/03/2024 08:53:13 Patient TargetsNo targets recorded. Patient Instructions Encounter Date Encounter Id Patient Instructions Last Modified By Organization Details Last Modified Time 02/15/2024 [id number] discussed recent sinus CT findings with patient. Also discussed middle ear fluid present bilaterally that is likely affecting his hearing and causing some mild dizziness. Prescribed cefdinir twice a day for 10 days for antimicrobial coverage. Take prednisone 20 mg daily for 5 days for inflammation. Discussed side effects of both medications. Also discussed montelukast and prescribed medication. Patient states he will follow-up with his PCP for continued prescription. He will have an audiogram and tympanogram completed. If symptoms continue to persist or worsen after completion of medication please notify the office to discuss further options with Dr. Leon. [email or web address] Not available 02/15/2024 15:04:16 Reason for Referral None Reported. Results Created Date Observation Date Name Description Value Unit Range Abnormal Flag Note LastModifiedBy Organization Detail LastModifiedTime 03/14/2003/14/2024 audio gram + tympa nogra m No observ ation record ed. [email or web address] [facility] (Audiology) [address], [address], 04/03/2024 11:15:35 03/19/20 24 03/14/2024 audio gram + tympa nogra m No observ ation record ed. [email or web address] (Audiology) 68[address] [facility] [address], [address], 03/30/2024 09:17:11 05/03/19 25 02/13/2024 CT, sinus es, w/o contr ast No observ ation record ed. [facility] [address] [place], [address], 05/04/2024 08:35:33 Result Notes None recorded. Problems Name Problem SNOMED Code Status Onset Date Resolution Date Notes Provider Name and Address Organization Details Recorded Time Dysfunction of bilateral eustachian tubes 7547755684289 100 Active 2023 Mónica Gonzales RN null, [employer] 4 14:52:44 Chronic maxillary sinusitis 12944064 Active 2023 SUSANNA Dave [address], [place], [address], [employer] 4 15:00:47 Chronic sinusitis 80759039 Active 2023 SUSANNA Dave [address], [place], [address], [employer] 4 15:00:56 Dysphonia 28946851 Active 2023 Mónica Gonzales RN null, [employer] 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 Procedures Surgical History None recorded. Imaging Results Imaging Date Name Status LastModified by Organiz ation Details LastModified Time 03/14/2024 audiogram + tympanogram completed [address] (Audiology) [address] [facility] [address] [place] [address], [address], 04/03/2024 11:15:35 03/14/2024 audiogram + tympanogram completed [address] (Audiology) 68[address] [facility] [address], [place], [address], 03/30/2024 09:17:11 02/13/2024 CT, sinuses, w/o contrast completed [address] [place], [address], 05/04/2024 08:35:33 Procedure Notes None recorded. Medical Equipment None Reported. Allergies Allergen ID Allergen Name Allergen Category Reaction Reaction Severity Criticality Documentation Date Start Date Code Code System Note Provider Name and Address Organization Details Recorded Time 12020 tiotropiu m Not available dry mouth Not available Not available 02/15/2024 91982 RxNorm Mónica Gonzales RN [facility], [facility] [employer] 08:32:32 Medications Name Sig Start Date Stop Date Status Note LastModified by Organization Details LastModified Time amoxicillin 500 mg capsule 03/19 completed Not Available Not Available Not Available prednisone 10 mg tablet PLEASE SEE ATTACHED FOR DETAILED DIRECTION S active Not Available Not Available No t Available atorvastati n 20 mg tablet Take 1 tablet every day by oral route. active Not Available Not Available No t Available ipratropium 0.5 mg-albutero l 3 mg (2.5 mg base)/3 mL nebulizatio n soln active Not Available Not Available Not Available azithromyci n 250 mg tablet TAKE 2 TABLETS BY MOUTH ON DAY 1, AND THEN TAKE 1 TABLET BY MOUTH ONCE A DAY ON DAY 2 THROUGH DAY 5 02/14 completed Not Available Not Available Not Available cetirizine 5 mg tablet TAKE 1 TABLET BY MOUTH EVERY DAY active Not Available Not Available No t Available Medrol (Kaleb) 4 mg tablets in a dose pack Take 1 dose pk by oral route. 05/03 completed Not Available Not Available Not Available prednisone 20 mg tablet Take 1 tablet every day by oral route for 5 days. 05/03 completed Not Available Not Available Not Available atenolol 25 mg tablet Take 1 tablet every day by oral route. active Not Available Not Available No t Available warfarin 4 mg tablet Take 1 tablet every day by oral route. active Not Available Not Available No t Available warfarin 3 mg tablet Take 1 tablet every day by oral route. active Not Available Not Available No t Available ketorolac 0.5 % eye drops INSTILL ONE DROP INTO SURGICAL EYE THREE TIMES PER DAY, STARTING AFTER SURGERY AND CONTINUE FOR 3 WEEKS 02/14 completed Not Available Not Available Not Available prednisolon e acetate 1 % eye drops,suspe nsion INSTILL ONE DROP THREE TIMES PER DAY INTO SURGICAL EYE, STARTING 4 HOURS AFTER SURGERY, CONTINUIN G FOR 3 WEEKS 02/14 completed Not Available Not Available Not Available meclizine 25 mg tablet Take 1 tablet 3 times a day by oral route. active Not Available Not Available No t Available oseltamivir 75 mg capsule TAKE 1 CAPSULE BY MOUTH TWICE A DAY active Not Available Not Available No t Available clotrimazol e-betametha sone 1 %-0.05 % topical cream APPLY TO THE AFFECTED AND SURROUNDI NG AREAS OF SKIN BY TOPICAL ROUTE 2 TIMES PER DAY IN THE MORNING AND EVENING FOR 2 WEEKS active Not Available Not Available No t Available montelukast 10 mg tablet Take 1 tablet every day by oral route for 90 days. active Not Available Not Available No t Available cyanocobala min (vit B-12) 1,[address] by sublingua l route. active Not Available Not Available No t Available loteprednol etabonate 0.5 % eye drops,suspe nsion INSTILL 1 DROP INTO BOTH EYES THREE TIMES DAILY FOR 14 DAYS. SHAKE WELL. 02/14 completed Not Available Not Available Not Available azelastine 137 mcg (0.1 %) nasal spray Dundas 2 sprays twice a day by intranasa l route. 05/03 completed Not Available Not Available Not Available warfarin 1 mg tablet Take 1 tablet every day by oral route. active Not Available Not Available No t Available albuterol sulfate HFA 90 mcg/actuati on aerosol inhaler INHALE 2 PUFFS (180 MCG) BY INHALATIO N ROUTE EVERY 4 TO 6 HOURS FOR SHORTNESS OF BREATH OR WHEEZING active Not Available Not Available No t Available cefdinir 300 mg capsule Take 1 capsule every 12 hours by oral route for 10 days. 05/03 completed Not Available Not Available Not Available fluticasone propionate 50 mcg/actuati on nasal spray,suspe nsion USE 1-2 SPRAYS IN EACH NOSTRIL ONCE DAILY NEEDED 05/03 completed Not Available Not Available Not Available amoxicillin 875 mg-potassiu m clavulanate 125 mg tablet TAKE 1 TABLET BY MOUTH EVERY 12 HOURS 02/14 completed Not Available Not Available Not Available moxifloxaci n 0.5 % eye drops INSTILL ONE DROP THREE TIMES PER DAY INTO SURGICAL EYE, STARTING ONE DAY PRIOR TO SURGERY, CONTINUE FOR 1 WEEK AFTER 02/14 completed Not Available Not Available Not Available tiotropium bromide 18 mcg capsule with inhalation device INHALE CONTENTS OF ONE CAPSULE USING 2 INHALATIO NS BY INHALATIO N ROUTE ONCE DAILY VIA HANDIHALE R active Not Available Not Available No t Available losartan 100 mg-hydrochl orothiazide 12.5 mg tablet Take 1 tablet every day by oral route. active Not Available Not Available No t Available docusate sodium active Not Available Not Available Not Available peg 3350-electr olytes 236 gram-22.74 gram-6.74 gram-5.86 gram solution DRINK 8OZ EVERY 15 MINUTES UNTIL CLEAR BOWEL MOVEMENT NOTED active Not Available Not Available No t Available levocetiriz ine 5 mg tablet Take 1 tablet every day by oral route. active Not Available Not Available No t Available omeprazole 20 mg tablet,mayra yed release Take by oral route. active Not Available Not Available No t Available Breo Ellipta 200 mcg-25 mcg/dose powder for inhalation INHALE 1 PUFF BY MOUTH ONCE DAILY AT THE SAME TIME EACH DAY active Not Available Not Available No t Available Vitals Date Recorded Body weight Body mass index (BMI) Body height Body temperature Provider Name and Address Organization Details Last Updated DateTime 02/15/2024 19554.76 g 23.4 kg/m2 182.88 cm 98 [degF] Mónica Gonzales RN [facility] 02/15/2024 14:45:06 Date Recorded Body height Body mass index (BMI) Body weight Body temperature Provider Name and Address Organization Details Last Updated DateTime 2024 182.88 cm 23.2 kg/m2 37100.01 g 97.9 [degF] Mónica Gonzales RN [facility] 2024 15:18:01 Date Recorded Body height Body mass index (BMI) Body weight Body temperature Provider Name and Address Organization Details Last Updated DateTime 05/03/2024 182.88 cm 23.2 kg/m2 96943.3 g 97.7 [degF] Mónica Gonzales RN [facility] 05/03/2024 11:08:54 Social History Question Answer Notes LastModified by Organizat ion Details LastModified Time Tobacco Smoking Status Former Smoker Mónica Gonzales RN [facility] 02/15/2024 14:40:50 What Is Your Level Of Alcohol Consumption? Occasional Information not available 02/15/2024 Sex: Unknown Functional Status None recorded. Mental Status None recorded. Family History Relationship Description Onset Age of this Age Resolved Age Notes LastModified by Organization Details LastModified Time Father No current problems or disability Not available 02/14 14:38:14 Mother No current problems or disability Not available 02/14 14:38:14 Notes:NO ENT Medical History Condition Response HEARTBURN / REFLUX Y COPD Y HIGH CHOLESTEROL / HYPERLIPIDEMIA Y EAR OR HEARING PROBLEMS Y SLEEP DISORDER Y HYPERTENSION Y Past Encounters Encounter ID Performer Location Encounter Start Date Encounter Closed Date Diagnosis/Indication Diagnosis SNOMED-CT Code Diagnosis ICD10 Code Diagnosis Note [id number] SUSANNA Dave [facility] [address] [place] [address] 02/15/2024 14:31:08 02/15/2024 15:04:52 Dysfunction of bilateral eustachian tubes 5288418909 747117 H69.93 Chronic sinusitis 321384 00 J32.9 [id number] [facility] [address] [place] [address] 2024 14:39:23 03/22/2024 10:54:37 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 2124390923 J39.2 Asymmetric al sensorineural hearing loss 657491614 H90.5 Chronic sinusitis 279987 00 J32.9 [id number] Fab Leon MD [facility] [address] [place] [address] 05/03/2024 10:58:58 05/03/2024 11:41:18 Chronic maxillary sinusitis 37449710 J32.0 Chronic et hmoidal sinusitis 68416032 J32.2 Health Concerns Section Related Observation LastModified by Organization Detai ls LastModified Time None Recorded Concern Status LastModified by Organization Details LastModified Time None Recorded Advance Directives Directive None Recorded Payers Encounter Date Sequence Insurance Name Policy Number Policy Michele Covered Member ID Michele Member ID Guarantor Name 02/15/2024 1 [employer] (MEDICARE REPLACEMENT PPO) [id number] 1 Artur Guadalupe [id number] [facility] 1 [employer] (MEDICARE REPLACEMENT PPO) [id number] 1 Artur Guadalupe [id number] Artur Giles [facility] 05/03/2024 1 [employer] (MEDICARE REPLACEMENT PPO) [id number] 1 [facility] [id number] Artur Guadalupe Notes Date Note Type Note Provider Name and Address Organization Details Recorded Time 02/15/2024 text/html This patient has a past medical history significant for COPD, sensorineural hearing loss s/p bilateral hearing aids, and hypertension who presents to the office with a complaint persistent nasal congestion, sinus headaches, and decreased hearing onset approximately 6 months ago. He has been taking levo cetirizine and azelastine as prescribed by his PCP with little to no relief. His PCP was considering prescribing montelukast but wanted to hold off until he was seen by ENT. He did recently have a sinus CT completed on 02/13/2024 revealing some mild mucosal thickening in the bilateral ethmoid and maxillary sinuses. The ostiomeatal units are patent. He states that he has not been on any recent antibiotics for this. His daughter does note that he has been having intermittent dizziness with this as well. SUSANNA Dave [address], [facility] [address], [place], [address], [facility] [employer] [address] [employer] [facility] [employer] [facility] 02/15/2024 15:04:19 2024 text/html this patient has chronic sinusitis as seen on CT affecting the ethmoid and maxillary sinuses. Did take antibiotics and prednisone with not much improvement. He also reports that food reflexes into his nasopharynx. Also complains of hearing loss. An audiogram was done demonstrating severe loss in the left and moderate to severe in the right. Wears a hearing aid in the right ear but is essentially unable on the left Fab Leon MD [address], [facility] [address], [place], [address], [employer] [facility] [employer] 2024 15:40:31 05/03/2024 text/html This patient returns with worsening symptoms of sinusitis. His CT scan revealed ethmoid and maxillary sinusitis and he was placed on antibiotics and steroids. His daughter reports the antibiotics only helped very transiently. And then he complains of facial pain eye pain and epistaxis. His daughter is not interested in any further antibiotics. Fab Leon MD [address], [facility] [address], [place], [address], [employer] [facility] [employer] [facility] 05/03/2024 11:41:16
[2024-05-07 07:17] VITALS: BP 173/108; PULSE 101; RESP 20; TEMP 37.1; O2SAT 99
--- NOTE | 2024-05-07 07:18 | ED.URI ---
HPI - URI/Sore Throat General Chief Complaint: Upper Respiratory Infection Stated Complaint: sob Time Seen by Provider: 05/07/24 07:17 Source: patient Mode of arrival: ambulatory Limitations: no limitations History of Present Illness HPI Narrative: 89 years old white male came to the ED by private car complaining of coughing, nasal and postnasal discharge, containing blood. Patient currently on Coumadin. Patient report the above symptom been going for a while got worse lately has seen his family physician 3-4 times in 1 week for the same problem. He denies any fever or chills or nausea or vomiting or chest pain or shortness of breath History of chronic sinusitis, scheduled for surgery. Related Data Home Medications ?Medication ?Instructions ?Recorded ?Confirmed ?Last Taken ?Type albuterol sulfate 90 mcg/actuation 1 inh inhalation Q4-6H PRN 02/02/23 03/10/23 03/09/23 History breath activated powder inhaler Shortness Of Breath atenolol 25 mg tablet 25 mg PO DAILY 02/02/23 03/10/23 03/10/23 06:00 History atorvastatin 20 mg tablet 20 mg PO DAILY 02/02/23 03/10/23 03/09/23 History losartan 100 0.5 tablet PO DAILY 02/02/23 03/10/23 03/09/23 History mg-hydrochlorothiazide 12.5 mg tablet omeprazole 20 mg capsule,delayed 20 mg PO DAILY reflux 02/02/23 03/10/23 03/09/23 History release warfarin 1 mg tablet 0.5 mg PO DAILY 02/02/23 03/10/23 03/09/23 History tiotropium bromide 18 mcg capsule 1 cap inhalation PRN PRN Shortness 03/02/23 03/10/23 03/09/23 History with inhalation device (Spiriva Of Breath with HandiHaler) warfarin 3 mg tablet 3 mg PO DAILY 03/02/23 03/10/23 03/06/23 History ipratropium 0.5 mg-albuterol 3 mg ml inhalation 05/07/24 Unknown History (2.5 mg base)/3 mL nebulization soln montelukast 10 mg tablet mg 05/07/24 Unknown History Allergies Allergy/AdvReac Type Severity Reaction Status Date / Time No Known Allergies Allergy Verified 05/07/24 08:11 Review of Systems Review of Systems: All systems reviewed & are unremarkable except as noted in HPI and below PMFSH Past Medical History Medical History COPD (chronic obstructive pulmonary disease) SATISH (obstructive sleep apnea) GERD (gastroesophageal reflux disease) History of blood clots High cholesterol History of skin cancer Hypertension Surgical History Surgical History History of bilateral knee replacement History of appendectomy Family History Family History Other Diabetes mellitus Ovarian cancer Social History Social History Smoking status: Former smoker Tobacco type: cigarettes Alcohol intake: current Substance use: never Substance use type: does not use Living arrangements: with family Occupation/Education: retired Spiritual care concerns: No Exam Narrative: General appearance: Well-developed, well-nourished Skin: Normal color Head: Normocephalic, nontraumatic Eyes: Clear conjunctiva ENT: Oropharynx normal, ears normal, nose normal Neck: Supple, nontender Chest and respiratory: Airway patent, no respiratory distress, no accessory muscle use Heart: Regular rate/rhythm Abdomen: Soft, nontender, no organomegaly, quiet bowel sounds Vascular: Normal peripheral pulses, normal capillary refill. Musculoskeletal: Normal range of motion, nontender back Neurologic: Alert and oriented ?3, GAS FITTER is normal as tested, no gross motor deficit Course Consultations Consultation #1: dr crockett Agreed with the plan of Tamiflu and Augmentin for chronic sinusitis and influenza a Date: 05/07/24 Time: 09:21 Vital Signs Vital signs: Vital Signs Temperature 37.1 C 05/07/24 07:17 Pulse Rate 101 H 05/07/24 07:17 Respiratory Rate 20 05/07/24 07:17 Blood Pressure 173/108 H 05/07/24 07:17 Pulse Oximetry 99 05/07/24 07:17 Oxygen Delivery Room Air 05/07/24 07:17 Temperature 37.1 C 05/07/24 07:17 Pulse Rate 101 H 05/07/24 07:17 Respiratory Rate 20 05/07/24 07:17 Blood Pressure 173/108 H 05/07/24 07:17 Pulse Oximetry 99 05/07/24 07:35 Oxygen Delivery Room Air 05/07/24 07:35 MDM - URI/Sore Throat MDM Narrative Medical decision making narrative: Patient presents with coughing, nasal and postnasal discharge mixed with blood when he is in AF hard or blow his nose hard. Currently no active bleeding Vital signs showing blood pressure 173/108, heart rate 101 otherwise within normal limit Differential diagnosis include acute on top of chronic sinusitis, Coumadin coagulopathy, upper respiratory viral infection, electrolyte imbalance, dehydration Blood workup today includes CBC, CMP, PT PTT showed WBC of 14.0 INR 3.0 otherwise insignificant abnormality Viral panel came back positive for influenza A, chest x-rayShowed no acute abnormalities. Discharged on Augmentin, Tamiflu, follow up with family physician in the morning, discussed with Dr. Gino Luna the pt was discharged to home.the pt,s condition upon discharge was fair,education was provided to the pt in reference to the final impression,discharge study results,treatment,prognosis and need for follow up . Medical Records Attestation: I reviewed the patient's medical records. Lab Data Attestation: I reviewed the patient's lab results. 05/07/24 07:22 05/07/24 07:23 Labs: Lab Results 05/07/24 05/07/24 Range/Units 07:22 07:23 WBC 14.0 H (4.8-10.8) K/mm3 RBC 4.63 L (4.70-6.10) M/mm3 Hgb 14.0 (12.4-15.3) g/dL Hct 42.3 (37.0-46.0) % MCV 91.4 (78.0-102.0) fL MCH 30.2 (27.0-31.0) pg MCHC 33.1 (32-36) g/dL RDW 13.9 (11.6-14.4) % Plt Count 273 (150-420) K/mm3 MPV 8.9 (8.7-11.0) fl Immature Gran % (Auto) 1.3 H (0.0-0.0) % Neut % (Auto) 71.4 H (50.0-70.0) % Lymph % (Auto) 15.9 L (18.0-42.0) % [place] % (Auto) 8.7 (2.0-11.0) % Eos % (Auto) 2.1 (1.0-6.0) % Baso % (Auto) 0.6 (0.0-1.0) % Lymph # (Auto) 2.23 (1.10-4.50) K/mm3 [place] # (Auto) 1.22 H (0.10-0.90) K/mm3 Eos # (Auto) 0.29 (0.02-0.50) K/mm3 Baso # (Auto) 0.08 (0.00-0.10) K/mm3 Abs Immat Gran (auto) 0.18 H (0.00-0.00) K/mm3 Absolute Neuts (auto) 10.02 H (1.70-7.20) K/mm3 Absolute Nucleated RBC 0.00 (0.00-0.00) K/mm3 Nucleated RBC % 0.0 (0-0.0) % PT 30.1 H (9.50-12.1) Seconds INR 3.0 APTT 37.1 H (23.9-30.70) Sec Sodium 138 (136-145) mmol/L Potassium 3.8 (3.5-5.1) mmol/L Chloride 103 (98-108) mmol/L Carbon Dioxide 24 (21-32) mmol/L Anion Gap 11 (4-12) mmol/L BUN 20 H (7-18) mg/dL Creatinine 0.89 (0.70-1.30) mg/dL Estim Creat Clear Calc 54 ml/min Estimated GFR > 60 (59 - ) Glucose 110 H (70-99) mg/dL Calculated Osmolality 289 (285-295) mOsm/kg Calcium 8.3 L (8.5-10.1) mg/dL Total Bilirubin 0.1 (0.00-1.00) mg/dL AST 12 L (15-37) U/L ALT 20 (16-63) U/L Alkaline Phosphatase 98 (46-116) U/L Total Protein 6.9 (6.4-8.2) g/dL Albumin 3.1 L (3.4-5.0) g/dL Influenza A (RT-PCR) Positive A (Negative) Influenza B (RT-PCR) Negative (Negative) RSV (RT-PCR) Negative (Negative) SARS-CoV-2 RNA (RT-PCR) Negative (Negative) Imaging Data Radiologist's impression: Impressions Chest X-Ray 05/07/24 07:50 Impression: COPD. No definite acute abnormality seen. ECG Data EKG #1: Attestation: I personally reviewed and interpreted this ECG as follows: ECG completion date: 05/07/24 Interpretation: normal sinus rhythm at 95 beats per minute, left ventricular hypertrophy, otherwise normal EKG Critical Care Time Critical Care Time Critical Care Time: No Discharge Plan Discharge Clinical Impression: Warfarin-induced coagulopathy, Influenza A, Chronic sinusitis Condition: Stable Instructions: Sinusitis (ED), Influenza (ED), Bleeding Disorders (ED) Additional Instructions: the pt was discharged to home.the pt,s condition upon discharge was fair,education was provided to the pt in reference to the final impression,discharge study results,treatment,prognosis and need for follow up . Hold Coumadin for 2 days Take Tylenol as needed See your family physician tomorrow Patient Language: Italian Prescriptions: New amoxicillin-pot clavulanate [Augmentin] 500-125 mg tablet 1 tablet PO Q8H Qty: 30 0RF oseltamivir [Tamiflu] 75 mg capsule 75 mg PO BID Qty: 10 0RF No Action ipratropium-albuterol 0.5 mg-3 mg(2.5 mg base)/3 mL solution for nebulization INHALATION montelukast 10 mg tablet atenolol 25 mg tablet 25 mg PO DAILY omeprazole 20 mg capsule,delayed release(DR/EC) 20 mg PO DAILY atorvastatin 20 mg tablet 20 mg PO DAILY albuterol sulfate 90 mcg/actuation aerosol powdr breath activated 1 inh inhalation Q4-6H PRN (Reason: Shortness Of Breath) losartan-hydrochlorothiazide 100-12.5 mg tablet 0.5 tablet PO DAILY warfarin 1 mg tablet 0.5 mg PO DAILY Patient Comments: total of 3.5mg daily ursodiol 300 mg capsule 300 mg PO BID Qty: 180 1RF warfarin 3 mg tablet 3 mg PO DAILY tiotropium bromide [Spiriva with HandiHaler] 18 mcg capsule, w/inhalation device 1 cap INHALATION PRN PRN (Reason: Shortness Of Breath) Follow-up/Referrals: Lizandro Crockett MD [Primary Care Provider] -
--- NOTE | 2024-05-07 07:22 | ECG_ITS ---
Test Date: 2024-05-07 07:39:48 Measurements Intervals [place] Rate: 95 P: 64 [place]: 184 QRS: 73 QRSD: 103 T: 17 QT: 356 QTc: 449 Interpretive Statements SINUS RHYTHM CONSIDER INFERIOR INFARCT, AGE INDETERMINATE CONSIDER ANTEROLATERAL INFARCT, AGE INDETERMINATE BASELINE ARTIFACT- I, II, III, AVR, AVL, AVF, V1 ABNORMAL ECG No previous ECG available for comparison Electronically Signed On 05-07-2024 08:00:55 INSURANCE APPLICATION INVESTIGATOR by Dony Junior D.O.
[2024-05-07 07:32] LABS: Basophils Absolute Auto 0.08 K/mm3 (0.00-0.10); Basophils Percent Auto 0.6 % (0.0-1.0); Eosinophils Absolute Auto 0.29 K/mm3 (0.02-0.50); Eosinophils Percent Auto 2.1 % (1.0-6.0); Hematocrit 42.3 % (37.0-46.0); Immature Granulocyte Absolute 0.18 K/mm3 (0.00-0.00); Immature Granulocyte Percent A 1.3 % (0.0-0.0); Lymphocytes Absolute Auto 2.23 K/mm3 (1.10-4.50); Lymphocytes Percent Auto 15.9 % (18.0-42.0); Mean Corpuscular HGB Conc 33.1 g/dL (32-36); Mean Corpuscular Hemoglobin 30.2 pg (27.0-31.0); Mean Corpuscular Volume 91.4 fL (78.0-102.0); Mean Platelet Volume 8.9 fl (8.7-11.0); Monocytes Absolute Auto 1.22 K/mm3 (0.10-0.90); Monocytes Percent Auto 8.7 % (2.0-11.0); Neutrophils Absolute Auto 10.02 K/mm3 (1.70-7.20); Neutrophils Percent Auto 71.4 % (50.0-70.0); Platelet Count Result 273 K/mm3 (150-420); Red Blood Count 4.63 M/mm3 (4.70-6.10); Red Cell Distribution Width 13.9 % (11.6-14.4)
[2024-05-07 07:35] VITALS: O2SAT 99
--- OUTSIDE RECORDS SUMMARY | 2024-05-07 07:59 | XMS_ITS | Clinical Summary ---
Author Organization [facility] Address [facility] [place] [address] Care Team Providers Care Hammerer Helper Name Role Phone Lizandro Christian MD Primary [...] age to complete this topic Insurance MED [facility] MEDICARE Care Teams Hammerer Helper Relationship Specialty Start Date End Date Lizandro Christian MD [address] [place] [address] PCP - General INTERNAL MEDICINE 04/01/21
[2024-05-07 08:01] LABS: Alkaline Phosphatase 98 U/L (46-116); Anion Gap 11 mmol/L (4-12); Aspartate Amino Transferase 12 U/L (15-37); Bilirubin,Total 0.1 mg/dL (0.00-1.00); Carbon Dioxide 24 mmol/L (21-32); Chloride 103 mmol/L (98-108); Potassium 3.8 mmol/L (3.5-5.1); Sodium 138 mmol/L (136-145); Total Protein 6.9 g/dL (6.4-8.2)
[2024-05-07 08:04] LABS: SARS-CoV-2 RNA PCR Negative (Negative)
[2024-05-07 08:07] LABS: Influenza A QL RT-PCR Positive (Negative); Influenza B QL RT-PCR Negative (Negative); RSV RNA, RT-PCR Negative (Negative)
[2024-05-07 08:09] LABS: Partial Thromboplastin Time 37.1 Sec (23.9-30.70); Prothrombin Time 30.1 Seconds (9.50-12.1)
[2024-05-07 08:11] LABS: Alanine Aminotransferase 20 U/L (16-63); Albumin Level 3.1 g/dL (3.4-5.0); Blood Urea Nitrogen 20 mg/dL (7-18); Estimated CRCL calculation 54 ml/min; Estimated Glomerular Filt Rate > 60
[2024-05-07 08:17] LABS: Calcium 8.3 mg/dL (8.5-10.1); Glucose 110 mg/dL (70-99); Osmolality Calculated 289 mOsm/kg (285-295)
[2024-05-07] MEDS: OSELTAMIVIR PHOSPHATE 75 MG CAPSULE PO (09:05)
[2024-05-07 09:28] VITALS: BP 117/81; PULSE 93; RESP 20; TEMP 36.6; O2SAT 97
--- NOTE | 2024-05-07 09:53 | PC.NURSE ---
40[address] DR NOBLE SPOKE WITH DR ALDRICH FOR FOLLOW UP CARE
== END 2024-05-07 09:32 | disposition home or self-care (01) ==
PROVIDERS: Emergency Provider Emergency Medicine; PCP Internal Medicine
DX: J10.1 Influenza due to other identified influenza virus with other respiratory manifestations (principal); J32.9 Chronic sinusitis, unspecified; R79.1 Abnormal coagulation profile; Z79.01 Long term (current) use of anticoagulants; Z20.822 Contact with and (suspected) exposure to COVID-19
CPT/HCPCS: 36415; 71045; 80053; 85025; 85610; 85730; 87637; 93005; 99284; A9270

== ENCOUNTER 2024-07-05 16:26 | Outpatient (CLI) | payer MEDICARE, SELFPAY ==
--- NOTE | ~2024-07-05 | XR_ITS ---
XR chest 2V Ordering provider: Lizandro Christian MD History: 89 years Male with . COUGH . Comparison: May 07, 2024 FINDINGS: MEDIASTINUM: The cardiac silhouette is not enlarged. LUNGS: No infiltrates, effusions or pneumothorax. Underlying emphysematous changes. OTHER: No free air under the diaphragm. Levoscoliosis with degenerative spine. IMPRESSION: No acute cardiopulmonary pathology. Reviewed, dictated and finalized at location A.
--- OUTSIDE RECORDS SUMMARY | 2024-07-05 16:28 | XMS_ITS | Data Portability ---
Author Organization [place] [facility], Main Office Address [address] [place] [address] Care Team Providers Care Service Delivery Supervisor Name Role Phone LURDES ALDIRCH Primary Care Provider [phone] Assessment No assessment recorded. Plan of Treatment Reminders Order Date Submit Date Provider Last Modified By Organization Details Last Modified Time Details Appointments None recorded. Lab None recorded. Referral None recorded. Procedures None recorded. Surgeries endoscopy, nasal/sinus , w/ maxillary antrostomy & tissue removal (SURG) 2024 025 Not available 5 09:53:54 endoscopy, nasal/sinus , w/ total ethmoidecto my (SURG) 2024 025 Not available 5 09:53:54 Imaging None recorded. Medication Orders Medrol (Kaleb) 4 mg tablets in a dose pack 2023 024 [facility]acy #[id number], [address] [place], [address], 5 08:55:17 cefdinir 300 mg capsule 2023 024 [facility]/Pharmacy #[id number], [address] [place], [address], 5 08:53:13 cefdinir 300 mg capsule 2023 024 [facility] [address] [place], [address], 5 08:53:13 prednisone 20 mg tablet [address] [facility] [place], [address], 08:53:32 montelukast 10 mg tablet 2023 [facility] [address] [place], [address], 15:02:38 Patient TargetsNo targets recorded. Patient Instructions Encounter Date Encounter Id Patient Instructions Last Modified By Organization Details Last Modified Time 02/15/2024 [id number] discussed recent sinus CT findings with patient. [...] to discuss further options with Dr. Leon. [email or web address] Not available 02/15/2024 15:04:16 Reason for Referral None Reported. Results Created Date Observation Date Name Description Value Unit Range Abnormal Flag Note LastModifiedBy Organization Detail LastModifiedTime 03/14/20 24 03/14/2024 audio gram + tympa nogra m No observ ation record ed. [address] (Audiology) [address] [place] [address], [address], 04/03/2024 11:15:35 03/19/20 24 03/14/2024 audio gram + tympa nogra m No observ ation record ed. [address] (Audiology) [address] [facility] [address], [address], 03/30/2024 09:17:11 05/03/19 25 02/13/2024 CT, sinus es, w/o contr ast No observ ation record ed. [address] [place], [address], 05/04/2024 08:35:33 Result Notes None recorded. Problems Name Problem SNOMED Code Status Onset Date Resolution Date Notes Provider Name and Address Organization Details Recorded Time Dysfunction of bilateral eustachian tubes 4433577352158 100 Active 2023 Mónica Gonzales RN null, [facility] [employer] [facility] 4 14:52:44 Chronic maxillary sinusitis 45654479 Active 2023 SUSANNA Dave [address], [place], [address], [facility] [employer] [facility] 4 15:00:47 Chronic sinusitis 53249764 Active 2023 SUSANNA Dave [address], [place], [address], [facility] [employer] [facility] 4 15:00:56 Dysphonia 09334813 Active 2023 Mónica Gonzales RN null, [facility] [employer] [facility] 4 15:36:20 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 Procedures Surgical History None recorded. Imaging Results Imaging Date Name Status LastModified by [facility] Details LastModified Time 03/14/2024 audiogram + tympanogram completed [address] (Audiology) [address] [facility] [address], [place], [address], 04/03/2024 11:15:35 03/14/2024 audiogram + tympanogram completed [address] (Audiology) [address] [facility] [address], [place], [address], 03/30/2024 09:17:11 02/13/2024 CT, sinuses, w/o contrast completed [address] [place], [address], 05/04/2024 08:35:33 Procedure Notes None recorded. Medical Equipment None Reported. Allergies Allergen ID Allergen Name Allergen Category Reaction Reaction Severity Criticality Documentation Date Start Date Code Code System Note Provider Name and Address Organization Details Recorded Time 38328 tiotropiu m Not available dry mouth Not available Not available 02/15/2024 42934 RxNorm Mónica Gonzales RN null, [facility] 08:32:32 Medications Name Sig Start Date Stop [...] azelastine 137 mcg (0.1 %) nasal spray [place] 2 sprays twice a day by intranasa [...] Address Organization Details Last Updated DateTime 02/15/2024 31773.76 g 23.4 kg/m2 182.88 cm 98 [degF] Mónica Gonzales RN [facility] 02/15/2024 14:45:06 Date Recorded Body height Body mass index (BMI) Body weight Body temperature Provider Name and Address Organization Details Last Updated DateTime 2024 182.88 cm 23.2 kg/m2 68661.01 g 97.9 [degF] Mónica Gonzales RN [facility] [employer] [facility] 2024 15:18:01 Date Recorded Body height Body mass index (BMI) Body weight Body temperature Provider Name and Address Organization Details Last Updated DateTime 05/03/2024 182.88 cm 23.2 kg/m2 77265.3 g 97.7 [degF] Mónica Gonzales RN [facility] [employer] [facility] 05/03/2024 11:08:54 Social History Question Answer Notes LastModified by [employer] ion Details LastModified Time Tobacco Smoking Status Former Smoker Mónica Gonzales RN [facility], [facility] [employer] [facility] 02/15/2024 14:40:50 What Is Your Level Of [...] 14:38:14 Notes:NO ENT Medical History Condition Response SLEEP DISORDER Y HEARTBURN / REFLUX Y HYPERTENSION Y EAR OR HEARING PROBLEMS Y COPD Y HIGH CHOLESTEROL / HYPERLIPIDEMIA Y Past Encounters Encounter ID Performer Location Encounter Start Date Encounter Closed Date Diagnosis/Indication Diagnosis SNOMED-CT Code Diagnosis ICD10 Code Diagnosis Note [id number] SUSANNA Dave [facility] [place] [address] [place] [address] 02/15/2024 14:31:08 02/15/2024 15:04:52 Dysfunction of bilateral eustachian tubes 5005516509 001036 H69.93 Chronic sinusitis 287427 00 J32.9 [id number] Fab Leon MD [facility] [place] [address] [place] [address] 2024 14:39:23 03/22/2024 10:54:37 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 6409065221 J39.2 Asymmetric al sensorineural hearing loss 972823268 H90.5 Chronic sinusitis 059374 00 J32.9 [id number] Fab Leon MD [facility] [place] [address] [place] [address] 05/03/2024 10:58:58 05/08/2024 11:50:06 Chronic maxillary sinusitis 64490158 J32.0 Chronic et hmoidal sinusitis 67581228 J32.2 Health Concerns Section Related Observation LastModified by Organization Detai ls LastModified Time None Recorded Concern Status LastModified by Organization Details LastModified Time None Recorded Advance Directives Directive None Recorded Payers Encounter Date Sequence Insurance Name Policy Number Policy Michele Covered Member ID Michele Member ID Guarantor Name 02/15/2024 1 [employer] (MEDICARE REPLACEMENT PPO) [id number] 1 Artur Guadalupe [id number] Artur Guadalupe 2024 1 [employer] (MEDICARE REPLACEMENT PPO) [id number] Artur Guadalupe [id number] Artur Guadalupe 05/03/2024 1 [employer] (MEDICARE REPLACEMENT PPO) [id number] Artur Guadalupe [id number] Artur Guadalupe Notes Date Note Type Note [...] having intermittent dizziness with this as well. Mónica Miller, [facility] [address] [facility] [facility] [address], [place], [address], [facility] [employer] [facility] 02/15/2024 15:04:19 2024 text/html this patient [...] but is essentially unable on the left MD [address], [place], [address], [facility] [employer] [facility] 2024 15:40:31 05/03/2024 text/html This patient returns with worsening symptoms of sinusitis. His CT scan revealed ethmoid and maxillary sinusitis and he was placed on antibiotics and steroids. His daughter reports the antibiotics only helped very transiently. And then he complains of facial pain eye pain and epistaxis. His daughter is not interested in any further antibiotics. Fab Leon MD [address], [place], [address], [facility] [employer] [facility] 05/03/2024 11:41:16
--- OUTSIDE RECORDS SUMMARY | 2024-07-05 16:28 | XMS_ITS | Clinical Summary ---
Author Organization [facility] Address [facility] [place] [address] Care Team Providers Care Shop Tailor Apprentice Name Role Phone Lizandro Christian MD Primary Care Provider [phone] Medications montelukast (SINGULAIR) 10 MG tabletIndications :Moderate [...] Vaccine (1 - 2023-2 5 season) 2023 Meningococcal B Vaccine Aged Out No l onger eligible based on patient's age to complete this topic Meningococcal Vaccine Aged Out No dima cristian eligible based on patient's age to complete this topic RSV Immunizations Under 20 Months Aged Out No longer eligible based on patient's age to complete this topic Insurance MED [facility] MEDICARE Care Teams Shop Tailor Apprentice Relationship Specialty Start Date End Date Lizandro Christian MD [address] [place] [address] PCP - General INTERNAL MEDICINE 04/01/21
[2024-07-05 17:06] LABS: Basophils Absolute Auto 0.06 K/mm3 (0.00-0.10); Basophils Percent Auto 0.7 % (0.0-1.0); Eosinophils Absolute Auto 0.24 K/mm3 (0.02-0.50); Eosinophils Percent Auto 2.7 % (1.0-6.0); Hematocrit 41.4 % (37.0-46.0); Hemoglobin 13.4 g/dL (12.4-15.3); Immature Granulocyte Absolute 0.04 K/mm3 (0.00-0.00); Immature Granulocyte Percent A 0.5 % (0.0-0.0); Lymphocytes Absolute Auto 2.07 K/mm3 (1.10-4.50); Lymphocytes Percent Auto 23.5 % (18.0-42.0); Mean Corpuscular HGB Conc 32.4 g/dL (32-36); Mean Corpuscular Hemoglobin 30.3 pg (27.0-31.0); Mean Corpuscular Volume 93.7 fL (78.0-102.0); Monocytes Absolute Auto 0.95 K/mm3 (0.10-0.90); Monocytes Percent Auto 10.8 % (2.0-11.0); Neutrophils Absolute Auto 5.43 K/mm3 (1.70-7.20); Neutrophils Percent Auto 61.8 % (50.0-70.0); Platelet Count Result 188 K/mm3 (150-420); Red Blood Count 4.42 M/mm3 (4.70-6.10); Red Cell Distribution Width 14.1 % (11.6-14.4); White Blood Count 8.8 K/mm3 (4.8-10.8)
[2024-07-05 17:28] LABS: INR 1.6; Prothrombin Time 16.5 Seconds (9.50-12.1)
== END 2024-07-05 16:27 | disposition home or self-care (01) ==
LOC: CHSLAB 16:27
PROVIDERS: PCP Internal Medicine; Visit Provider Internal Medicine
DX: R05.9 Cough, unspecified (principal); Z79.01 Long term (current) use of anticoagulants
CPT/HCPCS: 36415; 71046; 85025; 85610

== ENCOUNTER 2024-07-16 08:32 | Outpatient (CLI) | payer MEDICARE, SELFPAY ==
--- NOTE | 2024-07-16 08:37 | EST_ITS ---
Patient Info Name: Artur Guadalupe Age: 89 years : 1935 Gender: Male Ht: 69 in Wt: 169 lbs BSA: 1.94 m2 HR: 70 bpm BP: 121 / 74 mmHg Heart Rhythm: Sinus Rhythm Technical Quality: Good Exam Date: 07/16/2024 9:55 AM Exam Location: Echo Lab Patient Status: Outpatient Admit Date: 07/16/2024 Staff Ordering Physician: Dony Junior DO Attending Provider: Dony Junior DO Exam Type: CA stress nicole w NM Study Info A regadenoson stress test was performed. History/Risk Factors Hypertension: Yes Dyslipidemia: Yes COPD: On Meds Summary 1. 1. Negative lexiscan stress test for ischemic ST changes by ECG criteria. 2. 2. Stable hemodynamics throughout the test. 3. 3. Nuclear scan to follow and will be reported separately. Please correlate with it. Protocol: LEXISCAN Stress ECG Details Stage: REST Duration (min): 2 min : 7 sec HR (bpm): 70 SBP (mmHg): 121 DBP (mmHg): 74 Stage: REST Duration (min): 5 min : 58 sec HR (bpm): 67 SBP (mmHg): 121 DBP (mmHg): 74 Stage: STAGE 1 Duration (min): 0 min : 28 sec HR (bpm): 64 SBP (mmHg): 121 DBP (mmHg): 74 Stage: RECOVERY Duration (min): 0 min : 32 sec HR (bpm): 80 SBP (mmHg): 121 DBP (mmHg): 74 Stage: RECOVERY Duration (min): 1 min : 32 sec HR (bpm): 81 SBP (mmHg): 121 DBP (mmHg): 74 Stage: RECOVERY Duration (min): 2 min : 32 sec HR (bpm): 72 SBP (mmHg): 120 DBP (mmHg): 80 Stage: RECOVERY Duration (min): 3 min : 32 sec HR (bpm): 71 SBP (mmHg): 127 DBP (mmHg): 78 Stage: RECOVERY Duration (min): 4 min : 32 sec HR (bpm): 71 SBP (mmHg): 125 DBP (mmHg): 77 Stage: RECOVERY Duration (min): 5 min : 32 sec HR (bpm): 72 SBP (mmHg): 138 DBP (mmHg): 74 Stage: RECOVERY Duration (min): 6 min : 22 sec HR (bpm): 68 SBP (mmHg): 130 DBP (mmHg): 73 Rest HR: 67 bpm Peak HR: 85 bpm Rest Sys BP: 121 mmHg Peak Sys BP: 138 mmHg Max Pred HR: 131 bpm % Max Pred HR: 65 % Target HR: 111 bpm Max RPP: 11,730 bpm*mmHg BP Response: Normal blood pressure response Termination Reason: Completed Protocol Cardiac Symptoms: None Total Time: 0 min : 28 sec Rest Han BP: 74 mmHg Peak Han BP: 74 mmHg Total Dose: 0.4 mg Resting ECG Normal sinus rhythm, delayed precordial R/S transition. Stress ECG No abnormal ST/T wave changes. Arrhythmias Occasional PACs. Report Signatures
--- OUTSIDE RECORDS SUMMARY | 2024-07-16 09:10 | XMS_ITS | Data Portability ---
Author Organization [place] [facility], Main Office Address [address] [place] [address] Care Team Providers Care Elementary Math Tutor Name Role Phone LURDES ALDRICH Primary Care [...] tablets in a dose pack [address] [id number], [address] [place], [address], 5 08:55:17 cefdinir 300 mg capsule [address] [facility] #[id number], [address] [place], [address], 5 08:53:13 cefdinir 300 mg capsule 2023 024 [facility] [address] [place], [address], 5 08:53:13 prednisone 20 mg tablet [address] [facility] [address] [place], [address], 08:53:32 montelukast [address] [facility], [address] [place], [address], 15:02:38 Patient TargetsNo targets recorded. Patient Instructions Encounter Date Encounter Id Patient Instructions Last Modified By Organization Details Last Modified Time 02/15/2024 [id number] discussed recent sinus CT findings with patient. [...] to discuss further options with Dr. Leon. [email or web address] Not available 02/15/2024 15:04:16 Reason for Referral None Reported. Results Created Date Observation Date Name Description Value Unit Range Abnormal Flag Note LastModifiedBy Organization Detail LastModifiedTime 03/14/20 24 03/14/2024 audio gram + tympa nogra m No observ ation record ed. [address] (Audiology) [address] [place] [address], [address], 04/03/2024 11:15:35 03/19/20 24 03/14/2024 audio gram + tympa nogra m No observ ation record ed. [address] (Audiology) [address] [facility] [address], [address], 03/30/2024 09:17:11 05/03/19 25 02/13/2024 CT, sinus es, w/o contr ast No observ ation record ed. [address] [place], [address], 05/04/2024 08:35:33 Result Notes None recorded. Problems Name Problem SNOMED Code Status Onset Date Resolution Date Notes Provider Name and Address Organization Details Recorded Time Dysfunction of bilateral eustachian tubes 2912105407077 100 Active 2023 Mónica Gonzales RN null, [facility] [employer] [facility] 4 14:52:44 Chronic maxillary sinusitis 05093625 Active 2023 SUSANNA Dave [address], [place], [address], [employer] [facility] [employer] [facility] 4 15:00:47 Chronic sinusitis 48456375 Active 2023 SUSANNA Dave [address], [place], [address], [employer] [facility] [facility] [employer] [facility] 4 15:00:56 Dysphonia 07466585 Active 2023 Mónica Gonzales RN null, [employer] [facility] [facility] [employer] [facility] 4 15:36:20 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 Procedures Surgical History None recorded. Imaging Results Imaging Date Name Status LastModified by [facility] Details LastModified Time 03/14/2024 audiogram + tympanogram completed [address] (Audiology) [address] [facility] [address], [place], [address], 04/03/2024 11:15:35 03/14/2024 audiogram + tympanogram completed [address] (Audiology) [address] [facility] [address], [place], [address], 03/30/2024 09:17:11 02/13/2024 CT, sinuses, w/o contrast completed [address] [place], [address], 05/04/2024 08:35:33 Procedure Notes None recorded. Medical Equipment None Reported. Allergies Allergen ID Allergen Name Allergen Category Reaction Reaction Severity Criticality Documentation Date Start Date Code Code System Note Provider Name and Address Organization Details Recorded Time 62178 tiotropiu m Not available dry mouth Not available Not available 02/15/2024 44958 RxNorm Mónica Gonzales RN null, [place] [facility] 08:32:32 Medications Name Sig Start Date Stop [...] azelastine 137 mcg (0.1 %) nasal spray [place] 2 sprays twice a day by intranasa [...] Address Organization Details Last Updated DateTime 02/15/2024 51270.76 g 23.4 kg/m2 182.88 cm 98 [degF] Mónica Gonzales RN [place] [facility] 02/15/2024 14:45:06 Date Recorded Body height Body mass index (BMI) Body weight Body temperature Provider Name and Address Organization Details Last Updated DateTime 2024 182.88 cm 23.2 kg/m2 60899.01 g 97.9 [degF] Mónica Gonzales RN [facility] [employer] [facility] 2024 15:18:01 Date Recorded Body height Body mass index (BMI) Body weight Body temperature Provider Name and Address Organization Details Last Updated DateTime 05/03/2024 182.88 cm 23.2 kg/m2 25870.3 g 97.7 [degF] Mónica Gonzales RN [facility] [employer] [facility] 05/03/2024 11:08:54 Social History Question Answer Notes LastModified by Weimi ion Details LastModified Time Tobacco Smoking Status Former Smoker Mónica Gonzales RN [facility], [facility] [employer] [facility] 02/15/2024 14:40:50 What Is Your Level Of [...] SLEEP DISORDER Y HEARTBURN / REFLUX Y COPD Y EAR OR HEARING PROBLEMS Y HYPERTENSION Y HIGH CHOLESTEROL / HYPERLIPIDEMIA Y Past Encounters Encounter ID Performer Location Encounter Start Date Encounter Closed Date Diagnosis/Indication Diagnosis SNOMED-CT Code Diagnosis ICD10 Code Diagnosis Note [id number] SUSANNA Dave [facility] [place] [address] [place] [address] 02/15/2024 14:31:08 02/15/2024 15:04:52 Dysfunction of bilateral eustachian tubes 1941362129 325051 H69.93 Chronic sinusitis 775306 00 J32.9 [id number] Fab Leon MD [facility] [place] [address] [place] [address] 2024 14:39:23 03/22/2024 10:54:37 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 2972086680 J39.2 Asymmetric al sensorineural hearing loss 040363277 H90.5 Chronic sinusitis 522954 00 J32.9 [id number] Fab Leon MD [facility] [place] [address] [place] [address] 05/03/2024 10:58:58 05/08/2024 11:50:06 Chronic maxillary sinusitis 96564878 J32.0 Chronic et hmoidal sinusitis 31702707 J32.2 Health Concerns Section Related Observation LastModified by Organization Detai ls LastModified Time None Recorded Concern Status LastModified by Organization Details LastModified Time None Recorded Advance Directives Directive None Recorded Payers Encounter Date Sequence Insurance Name Policy Number Policy Michele Covered Member ID Michele Member ID Guarantor Name 02/15/2024 1 [employer] (MEDICARE REPLACEMENT PPO) [id number] Artur Guadalupe [id number] Artur Guadalupe 2024 1 [employer] (MEDICARE REPLACEMENT PPO) [id number] Artur Guadalupe [id number] Artur Guadalupe 05/03/2024 1 [employer] (MEDICARE REPLACEMENT PPO) [id number] Artur Guadalupe [id number] Artur Guadalupe Notes Date Note Type Note [...] dizziness with this as well. Mónica Miller, [facility] [address] [facility], [facility] [address], [place], [address], [facility] [employer] [facility] 02/15/2024 15:04:19 2024 text/html this patient has [...] the left MD [address], [place], [address], [employer] [facility] [facility] [employer] [facility] 2024 15:40:31 05/03/2024 text/html This patient returns with worsening symptoms of sinusitis. His CT scan revealed ethmoid and maxillary sinusitis and he was placed on antibiotics and steroids. His daughter reports the antibiotics only helped very transiently. And then he complains of facial pain eye pain and epistaxis. His daughter is not interested in any further antibiotics. Fab Leon MD [address], [place], [address], [employer] [employer] [facility] 05/03/2024 11:41:16
--- OUTSIDE RECORDS SUMMARY | 2024-07-16 09:10 | XMS_ITS | Clinical Summary ---
Author Organization [facility] Address [facility] [place] [address] Care Team Providers Care Vending Machine Mechanic Name Role Phone Lizandro Christian MD Primary Care Provider [phone] Medications montelukast (SINGULAIR) 10 MG tabletIndications :Moderate persistent asthma without complication (HHS/HCC) TAKE 1 TABLET BY MOUTH NIGHTLY AT BEDTIME 30 tablet Active Active Problems Problem Noted Date Diagnosed [...] Health Maintenance Due Date Last Done Comments DTaP, Tdap and Td Vaccines ( 1 - Tdap) 1954 Pneumococcal Vaccine: 50+ Ye ars (1 of 2 - PCV) 1954 Zoster Vaccines (1 of 2) 1985 [...] age to complete this topic Insurance [facility] MEDICARE Care Teams Vending Machine Mechanic Relationship Specialty Start Date End Date Lizandro Christian MD [address] [place] [address] PCP - General INTERNAL MEDICINE 04/01/21
--- NOTE | 2024-07-16 13:17 | WPDCARIOSTRE ---
Nuclear Stress Test INDICATIONS Indications: Preop PROCEDURE Procedure Performed: Myocardial Perf Spect-Multi Procedure: Patient underwent a lexiscan stress test and was immediately injected with 32.8 of Cardiolyte. Multiple tomographic images were obtained. These are of good quality. There is no evidence of a small size, moderate severity apical perfusion defect with stress imaging. A separate resting images were obtained after patient was injected with 10.4 mCi of Cardiolyte. Multiple tomographic images were obtained. These are of good quality. There is no evidence of a small size, moderate severity apical perfusion defect with rest imaging. CONCLUSION Conclusion: 1. Myocardial perfusion imaging demonstrating a fixed small size apical perfusion defect suggestive of attenuation artifact. 2. No evidence of reversible ischemia. 3. Left ventriculogram demonstrates normal measured ejection fraction of 65% with no wall motion abnormalities. 4. TID score 1.08 is not elevated.
== END 2024-07-16 08:33 | disposition home or self-care (01) ==
LOC: CHSCARD 08:33
PROVIDERS: PCP Internal Medicine; Visit Provider Internal Medicine Cardiovascular Disease
DX: Z01.810 Encounter for preprocedural cardiovascular examination (principal)
CPT/HCPCS: 78452; 93017; A9502; J2785